=== PATIENT | male | born 1985 | race Hispanic/Latino ===

== ENCOUNTER 2022-02-23 10:34 | Inpatient (IN) | payer MEDICAID, SELFPAY ==
[2022-02-23] MEDS ORDERED: Tranexamic Acid 1,000 MG/10 ML VIAL ONE (10:47)
[2022-02-23 10:52] LABS: #Eosinphils 0.3 thou/uL (0.0-0.7); #Lymphocytes 1.9 thou/uL (1.20-3.40); #Monocytes 0.2 thou/uL (0.11-0.59); #Neutrophils 9.6 thou/uL (1.40-6.50); %Basophils 0.3 % (0.0-1.0); %Eosinophils 2.8 % (0.0-10.0); %Lymphocytes 15.4 % (21.0-51.0); %Neutrophils 79.6 % (42.0-75.0); Hemoglobin 13.3 g/dL (14.0-18.0); Mean Corpuscular HGB CONC 33.6 g/dL (32.0-36.0); Mean Corpuscular Hemoglobin 32.2 pg (27.0-31.0); Mean Corpuscular Volume 95.7 fL (78.0-98.0); Mean Platelet Volume 7.1 fL (7.4-10.4); Platelet Count 220 thou/uL (130-400); RBC Distribution Width 12.1 % (11.5-14.5); Red Blood Cell (RBC) Count 4.14 mill/uL (4.70-6.10)
[2022-02-23] MEDS ORDERED: Sodium Bicarb 50 MEQ/50 ML Abboject 8.4% SYRINGE ONE (11:03)
[2022-02-23 11:05] LABS: INR-International Normal Ratio 1.2; PTT 27.5 sec (22.9-36.1); Prothrombin Time 15.3 sec (12.0-14.7)
[2022-02-23 11:08] LABS: ALT (SGPT) 242 U/L (8-55); AST (SGOT) 308 U/L (5-34); Albumin 3.5 g/dL (3.5-5.0); Alkaline Phosphatase 67 U/L (40-110); Anion Gap 18 mmol/L (10-20); BUN (Urea Nitrogen) 18 mg/dL (8.9-20.6); Bilirubin, Total 0.6 mg/dL (0.2-1.2); Calc. Creatinine Clearance 0 mL/min (70-130); Calcium 7.9 mg/dL (7.8-10.44); Carbon Dioxide 21 mmol/L (22-29); Chloride 101 mmol/L (98-107); Estimated GFR 50; Globulin 2.4 g/dL (2.4-3.5); Glucose 309 mg/dL (70-105); Potassium 4.3 mmol/L (3.5-5.1); Protein, Total 5.9 g/dL (6.0-8.3); Sodium 136 mmol/L (136-145)
[2022-02-23 11:16] LABS: Alcohol Less than 10 mg/dL (Less than 10); Lipase 35 U/L (8-78)
[2022-02-23 11:23] LABS: Acetaminophen Less than 10.0 mcg/mL (10.0-30.0); Alcohol Less than 10 mg/dL (Less than 10); CK (CPK) 840 U/L (30-200); Magnesium 2.6 mg/dL (1.6-2.6); Salicylate Less than 8.0 mg/dL (15.0-30.0)
[2022-02-23] MEDS ORDERED: Rocuronium Bromide 10 MG/ML (10ML VIAL) ONE ×2 (11:25→12:12)
[2022-02-23] MEDS ORDERED: Ketamine 50 MG/ML (10ML VIAL) ONE (11:46)
[2022-02-23] MEDS ORDERED: fentaNYL Citrate/PF 100 MCG/2 ML SYRINGE ONE (11:46)
[2022-02-23] MEDS ORDERED: Calcium Chloride 1 GM/10 ML Abboject SYRINGE ONE ×3 (11:47→12:12)
[2022-02-23] MEDS ORDERED: Midazolam HCl 5 mg/5 ml Vial ONE (11:48)
[2022-02-23] MEDS ORDERED: Heparin 10,000 UNITS/ 10 ML VIAL ONE (11:51)
[2022-02-23 11:55] LABS: CKMB 20.6 ng/mL (0-6.6)
[2022-02-23] MEDS ORDERED: Methylene Blue 50 MG/10 ML AMPUL ONE (12:00)
[2022-02-23] MEDS ORDERED: Phenylephrine 10 MG/ML VIAL ONE (12:12)
[2022-02-23] MEDS ORDERED: Vecuronium 10 MG VIAL ONE (12:12)
[2022-02-23] MEDS ORDERED: Boostrix 0.5 ML (Tdap) VIAL ONE (12:23)
[2022-02-23] MEDS ORDERED: Sodium Bicarbonate 2.5 MEQ/5 ML VIAL ONE (12:30)
[2022-02-23] MEDS ORDERED: Insulin Regular 300 UNITS/3 ML VIAL SC PRN (13:04)
[2022-02-23] MEDS ORDERED: Dextrose 5% in Water 1,000 ML IV PRN (13:04)
[2022-02-23] MEDS ORDERED: TETANUS AND DIPHTHERIA TOX/PF 0.5 ML DISP.SYRIN IM ONE (13:04)
[2022-02-23] MEDS ORDERED: Dextrose 50% Abboject 50 ML SYRINGE SLOW IVP PRN (13:04)
[2022-02-23 13:14] LABS: Actual Bicarbonate (HCO3a) 19.9 mEq/L (22-28); Analyzer IN Cardio ER; Base Excess (BEa) -9.4 mEq/L (-2.0 to +3.0); CO2 Tension 59.7 mmHg (35.0-45.0); Carboxyhemoglobin (COHb) 0.3 gm% (0.0-3.0); Hemoglobin (Hb) 11.7 g/dL (14.0-18.0); Potassium - ABG Lab 3.77 mmol/L (3.70-5.30); pH, Arterial 7.14 (7.35-7.45)
[2022-02-23 13:15] LABS: O2 Tension (PaO2), arterial 54.3 mmHg (80.0-100.0); Puncture Site RRA
[2022-02-23] MEDS ORDERED: Acetaminophen 325 MG/10.15 ML UDCUP PO PRN (13:15)
[2022-02-23 13:16] LABS: ALV-art Gradient 584.075 mmHg (0-20)
[2022-02-23 13:17] LABS: Actual Bicarbonate (HCO3a) 26.8 mEq/L (22-28); Analyzer IN Cardio ER; Base Excess (BEa) 1.1 mEq/L (-2.0 to +3.0); CO2 Tension 48.6 mmHg (35.0-45.0); Calcium, Ionized (arterial) 0.88 mmol/L (1.12-1.30); Carboxyhemoglobin (COHb) 0.2 gm% (0.0-3.0); Hemoglobin (Hb) 8.5 g/dL (14.0-18.0); O2 Tension (PaO2), arterial 63.6 mmHg (80.0-100.0); Potassium - ABG Lab 3.48 mmol/L (3.70-5.30); pH, Arterial 7.36 (7.35-7.45)
[2022-02-23 13:18] LABS: Puncture Site RRA
[2022-02-23] MEDS ORDERED: Iopamidol-370 76% 500 ML 1 ML ONE (13:51)
[2022-02-23 14:33] LABS: Actual Bicarbonate (HCO3a) 25.8 mEq/L (22-28); CO2 Tension 46.8 mmHg (35.0-45.0); Calcium, Ionized (arterial) 1.33 mmol/L (1.12-1.30); Carboxyhemoglobin (COHb) 0.9 gm% (0.0-3.0); Hemoglobin (Hb) 12.2 g/dL (14.0-18.0); Potassium - ABG Lab 3.86 mmol/L (3.70-5.30); pH, Arterial 7.36 (7.35-7.45)
[2022-02-23 14:34] LABS: Puncture Site Arterial Line
[2022-02-23 14:42] LABS: Lactic Acid 3.4 mmol/L (0.5-2.2)
[2022-02-23 14:45] LABS: Band 20 % (5-11); Eosinophils 1 % (0-10); Hemoglobin 11.9 g/dL (14.0-18.0); Lymphocytes 3 % (21-51); MDiff Complete? YES; Mean Corpuscular HGB CONC 33.7 g/dL (32.0-36.0); Mean Corpuscular Hemoglobin 31.7 pg (27.0-31.0); Mean Corpuscular Volume 94.1 fL (78.0-98.0); Mean Platelet Volume 7.4 fL (7.4-10.4); Monocytes 6 % (0-10); Neutrophil 66 % (42-75); Platelet Count 140 thou/uL (130-400); Platelet Morphology Comment Appears Adequate; Polychromasia SLIGHT = 2-3 cells (100X) (0-2/hpf); RBC Distribution Width 13.7 % (11.5-14.5); Reactive Lymphocytes 4 % (0-10); Red Blood Cell (RBC) Count 3.75 mill/uL (4.70-6.10); White Blood Cell (WBC) Count 8.4 thou/uL (4.8-10.8)
[2022-02-23 15:03] LABS: Phosphorus 6.2 mg/dL (2.3-4.7)
[2022-02-23] MEDS ORDERED: Ventilator Sedation Protocol 1 EACH FS ONE (15:18)
[2022-02-23] MEDS ORDERED: Midazolam HCl 2 mg/2 ml Vial SLOW IVP PRN (15:20)
[2022-02-23] MEDS ORDERED: Fentanyl CADD 100 ML ONE (15:25)
[2022-02-23] MEDS ORDERED: DISCONTINUE PREVIOUS NARCOTIC PAIN MEDICATIONS AND BENZODIAZEPINES FS SCH (15:30)
[2022-02-23] MEDS ORDERED: Propofol BOLUS 1,000 MG/100 ML VIAL IV PRN (15:30)
[2022-02-23] MEDS ORDERED: Fentanyl BOLUS 250 ML IVPB PRN (15:30)
[2022-02-23] MEDS ORDERED: Morphine 2 MG/ML VIAL SLOW IVP PRN (15:30)
[2022-02-23] MEDS ORDERED: Propofol 1,000 MG/100 ML VIAL IV PRN (15:30)
[2022-02-23 15:40] LABS: Anion Gap 19 mmol/L (10-20); BUN (Urea Nitrogen) 19 mg/dL (8.9-20.6); Calc. Creatinine Clearance 0 mL/min (70-130); Calcium 9.7 mg/dL (7.8-10.44); Carbon Dioxide 20 mmol/L (22-29); Chloride 108 mmol/L (98-107); Estimated GFR 66; Glucose 163 mg/dL (70-105); Potassium 3.8 mmol/L (3.5-5.1); Sodium 143 mmol/L (136-145)
[2022-02-23 16:45] LABS: Bacteria/HPF None Seen HPF (None Seen); Bilirubin Negative (Negative); Blood, Urine 3+ (Negative); Clarity Cloudy (Clear); Glucose, Urine (Dipstick) Normal (Negative); Ketone, Urine Negative (Negative); Leukocyte Negative Leu/uL (Negative); Nitrite Negative (Negative); Protein, Urine (Dipstick) Negative (Neg-Trace); RBC/HPF Greater than 50 HPF (0-3); Specific Gravity, Urine 1.018 (1.002-1.036); Squamous Epithelial None Seen HPF (0-3); Urobilinogen Normal mg/dL (Less than 2)
[2022-02-23 16:46] LABS: Amphetamine Not Detected (NotDetected); Barbiturates Screen Not Detected (NotDetected); Benzodiazepine Screen Not Detected (NotDetected); Cocaine Metabolite Screen Not Detected (NotDetected); Methadone Not Detected (NotDetected); Methamphetamine Not Detected (NotDetected); Opiate Screen Not Detected (NotDetected); Oxycodone Screen Not Detected (NotDetected); Phencyclidine (PCP) Not Detected (NotDetected); THC/Cannabinoid Screen Not Detected (NotDetected); Tricyclic Screen Not Detected (NotDetected)
[2022-02-23] MEDS ORDERED: Sodium Chloride 0.9% 500 ML IV SCH (17:00)
[2022-02-23] MEDS ORDERED: Morphine 4 MG/ML VIAL SLOW IVP SCH (17:00)
[2022-02-23] MEDS ORDERED: Sodium Chloride 0.9% 1,000 ML IV SCH (17:00)
[2022-02-23] MEDS ORDERED: Potassium Chloride 40 MEQ in Premix Bag 1 BAG IVPB SCH (17:15)
[2022-02-23] MEDS ORDERED: Dexmedetomidine In 0.9 % NaCl 100 ML IVPB SCH (17:30)
[2022-02-23] MEDS: Fentanyl CADD 100 ML IV SCH (18:06)
[2022-02-23] MEDS: Sodium Chloride 0.9% 1,000 ML IV SCH ×2 (18:06→19:59)
[2022-02-23] MEDS ORDERED: Oxazepam 10 MG CAP PO SCH (18:15)
[2022-02-23] MEDS: Potassium Chloride 20 MEQ in Premix Bag 1 BAG IVPB SCH ×2 (18:16→19:55)
[2022-02-23 18:25] LABS: Actual Bicarbonate (HCO3a) 20.7 mEq/L (22-28); Base Excess (BEa) -4.4 mEq/L (-2.0 to +3.0); CO2 Tension 38.4 mmHg (35.0-45.0); Hemoglobin (Hb) 12.9 g/dL (14.0-18.0); O2 Tension (PaO2), arterial 125.2 mmHg (80.0-100.0); Potassium - ABG Lab 3.82 mmol/L (3.70-5.30); pH, Arterial 7.35 (7.35-7.45)
[2022-02-23 18:26] LABS: Puncture Site LINE
[2022-02-23] MEDS ORDERED: Xylocaine 1% w/ Epi 1:100K 10 ML VIAL ONE (18:35)
[2022-02-23 18:48] LABS: CKMB 54.3 ng/mL (0-6.6)
[2022-02-23] MEDS ORDERED: Mannitol 12.5 GM/50 ML SLOW IVP PRN (19:44)
[2022-02-23] MEDS ORDERED: Piperacillin/Tazobactam 3.375 GM in Sodium Chloride 0.9% 100 ML IVPB SCH ×2 (20:00→23:59)
[2022-02-23 20:40] LABS: Lactic Acid 6.1 mmol/L (0.5-2.2)
[2022-02-23 20:41] LABS: INR-International Normal Ratio 1.2; PTT 25.6 sec (22.9-36.1); Prothrombin Time 14.9 sec (12.0-14.7)
[2022-02-23 20:48] LABS: ALT (SGPT) 116 U/L (8-55); AST (SGOT) 292 U/L (5-34); Albumin 2.8 g/dL (3.5-5.0); Alkaline Phosphatase 43 U/L (40-110); Anion Gap 18 mmol/L (10-20); BUN (Urea Nitrogen) 24 mg/dL (8.9-20.6); Bilirubin, Total 1.4 mg/dL (0.2-1.2); Calc. Creatinine Clearance 87 mL/min (70-130); Calcium 8.2 mg/dL (7.8-10.44); Carbon Dioxide 18 mmol/L (22-29); Chloride 112 mmol/L (98-107); Estimated GFR 56; Globulin 1.6 g/dL (2.4-3.5); Glucose 178 mg/dL (70-105); Magnesium 1.8 mg/dL (1.6-2.6); Phosphorus 5.7 mg/dL (2.3-4.7); Potassium 4.7 mmol/L (3.5-5.1); Protein, Total 4.4 g/dL (6.0-8.3); Sodium 143 mmol/L (136-145)
[2022-02-23 20:57] LABS: Hemoglobin 12.6 g/dL (14.0-18.0); Mean Corpuscular Hemoglobin 31.7 pg (27.0-31.0); Mean Corpuscular Volume 93.3 fL (78.0-98.0); Mean Platelet Volume 7.9 fL (7.4-10.4); Platelet Count 136 thou/uL (130-400); RBC Distribution Width 14.1 % (11.5-14.5); Red Blood Cell (RBC) Count 3.97 mill/uL (4.70-6.10); White Blood Cell (WBC) Count 9.3 thou/uL (4.8-10.8)
[2022-02-23 21:03] LABS: Band 47 % (5-11); Lymphocytes 5 % (21-51); MDiff Complete? YES; Metamyelocyte 1 % (0-0); Monocytes 7 % (0-10); Neutrophil 40 % (42-75)
[2022-02-23] MEDS: Famotidine/PF 20 mg/2ml Vial SLOW IVP SCH (22:20)
[2022-02-23] MEDS ORDERED: Acetaminophen 650 MG/20.3 ML UDCUP PO PRN (22:45)
[2022-02-23] MEDS ORDERED: Magnesium 2 GM/50 ML(in water) 2 GM in Premix Bag 1 BAG IVPB SCH (23:45)
[2022-02-24] MEDS: Sodium Chloride 0.9% 1,000 ML IV SCH ×4 (00:09→18:24)
[2022-02-24] MEDS ORDERED: Sodium Chloride 0.9% 1,000 ML IV SCH (02:45)
[2022-02-24] MEDS: Piperacillin/Tazobactam 3.375 GM in Sodium Chloride 0.9% 100 ML IVPB SCH ×3 (02:53→18:20)
[2022-02-24 03:15] LABS: INR-International Normal Ratio 1.1; PTT 28.4 sec (22.9-36.1); Prothrombin Time 14.7 sec (12.0-14.7)
[2022-02-24 03:16] LABS: Anion Gap 19 mmol/L (10-20); BUN (Urea Nitrogen) 27 mg/dL (8.9-20.6); CK (CPK) 3624 U/L (30-200); Calc. Creatinine Clearance 98 mL/min (70-130); Carbon Dioxide 15 mmol/L (22-29); Chloride 114 mmol/L (98-107); Estimated GFR 65; Glucose 189 mg/dL (70-105); Magnesium 2.3 mg/dL (1.6-2.6); Phosphorus 3.5 mg/dL (2.3-4.7); Potassium 4.3 mmol/L (3.5-5.1); Sodium 144 mmol/L (136-145)
[2022-02-24 03:21] LABS: Critical Call Chem Troponin I RESULT DECREASING; Troponin I 8.955 ng/mL (< 0.028)
[2022-02-24 03:26] LABS: Band 26 % (5-11); Hemoglobin 10.6 g/dL (14.0-18.0); Hypochromia SLIGHT = 6-15 cells (100X) (0-5/hpf); Lymphocytes 3 % (21-51); MDiff Complete? YES; Mean Corpuscular HGB CONC 34.9 g/dL (32.0-36.0); Mean Corpuscular Volume 91.7 fL (78.0-98.0); Mean Platelet Volume 7.7 fL (7.4-10.4); Metamyelocyte 1 % (0-0); Monocytes 8 % (0-10); Neutrophil 62 % (42-75); Platelet Count 148 thou/uL (130-400); Platelet Morphology Comment Appears Adequate; RBC Distribution Width 14.2 % (11.5-14.5); Red Blood Cell (RBC) Count 3.32 mill/uL (4.70-6.10); White Blood Cell (WBC) Count 9.7 thou/uL (4.8-10.8)
[2022-02-24] MEDS ORDERED: levETIRAcetam in NS 1,000 MG in Premix Bag 1 BAG IVPB SCH (03:45)
[2022-02-24] MEDS ORDERED: levETIRAcetam 500 MG/5 ML VIAL SLOW IVP SCH (04:00)
[2022-02-24 04:28] LABS: Lactic Acid 4.7 mmol/L (0.5-2.2)
[2022-02-24] MEDS: Oxazepam 10 MG CAP PO SCH ×3 (06:43→21:40)
[2022-02-24 07:38] LABS: Actual Bicarbonate (HCO3a) 20.3 mEq/L (22-28); Base Excess (BEa) -2.9 mEq/L (-2.0 to +3.0); CO2 Tension 29.4 mmHg (35.0-45.0); Calcium, Ionized (arterial) 1.05 mmol/L (1.12-1.30); Carboxyhemoglobin (COHb) 0.3 gm% (0.0-3.0); Hemoglobin (Hb) 9.7 g/dL (14.0-18.0); O2 Tension (PaO2), arterial 166.3 mmHg (80.0-100.0); Potassium - ABG Lab 3.92 mmol/L (3.70-5.30); pH, Arterial 7.46 (7.35-7.45)
[2022-02-24 07:44] LABS: Puncture Site Arterial Line
[2022-02-24] MEDS: Folic Acid 1 MG TAB PO SCH (08:11)
[2022-02-24] MEDS: Famotidine/PF 20 mg/2ml Vial SLOW IVP SCH ×2 (08:11→21:40)
[2022-02-24] MEDS: Multivitamin W/ Minerals 1 TAB PO SCH (08:11)
[2022-02-24] MEDS: Thiamine 100 MG TAB PO SCH (08:12)
[2022-02-24] MEDS ORDERED: Calcium Chloride 1 GM/10 ML Abboject SYRINGE IVP SCH (08:15)
[2022-02-24] MEDS ORDERED: Albumin 5% 1,000 ML ONE (08:17)
[2022-02-24] MEDS ORDERED: Norepinephrine 4 MG/4 ML VIAL ONE (08:17)
[2022-02-24] MEDS ORDERED: Sodium Bicarb 50 MEQ/50 ML Abboject 8.4% SYRINGE ONE (08:17)
[2022-02-24] MEDS ORDERED: fentaNYL Citrate/PF 100 MCG/2 ML SYRINGE ONE (08:21)
[2022-02-24] MEDS ORDERED: Midazolam HCl 5 mg/5 ml Vial ONE (08:21)
[2022-02-24 08:46] LABS: #Lymphocytes 0.7 thou/uL (1.20-3.40); #Monocytes 0.5 thou/uL (0.11-0.59); #Neutrophils 7.8 thou/uL (1.40-6.50); %Basophils 0.4 % (0.0-1.0); %Eosinophils 0.2 % (0.0-10.0); %Lymphocytes 7.2 % (21.0-51.0); %Monocytes 5.4 % (0.0-10.0); %Neutrophils 86.8 % (42.0-75.0); Hemoglobin 9.2 g/dL (14.0-18.0); Mean Corpuscular HGB CONC 33.7 g/dL (32.0-36.0); Mean Corpuscular Hemoglobin 31.4 pg (27.0-31.0); Mean Corpuscular Volume 93.2 fL (78.0-98.0); Mean Platelet Volume 8.2 fL (7.4-10.4); Platelet Count 132 thou/uL (130-400); RBC Distribution Width 14.4 % (11.5-14.5); Red Blood Cell (RBC) Count 2.93 mill/uL (4.70-6.10)
[2022-02-24] MEDS ORDERED: Albumin 25% 25 GM/100 ML BOT IVPB SCH (09:00)
[2022-02-24] MEDS ORDERED: Rocuronium Bromide 10 MG/ML (10ML VIAL) ONE (09:25)
[2022-02-24] MEDS ORDERED: Calcium Chloride 1 GM/10 ML Abboject SYRINGE ONE (09:25)
[2022-02-24] MEDS ORDERED: Vecuronium 10 MG VIAL ONE (09:25)
[2022-02-24] MEDS ORDERED: Piperacillin/Tazobactam 3.375 GM VIAL ONE (10:04)
[2022-02-24 12:53] LABS: Actual Bicarbonate (HCO3a) 21.1 mEq/L (22-28); Base Excess (BEa) -3.2 mEq/L (-2.0 to +3.0); CO2 Tension 34.5 mmHg (35.0-45.0); Calcium, Ionized (arterial) 1.16 mmol/L (1.12-1.30); Carboxyhemoglobin (COHb) 0.6 gm% (0.0-3.0); Hemoglobin (Hb) 8.2 g/dL (14.0-18.0); O2 Tension (PaO2), arterial 99.8 mmHg (80.0-100.0); Potassium - ABG Lab 3.94 mmol/L (3.70-5.30)
[2022-02-24 12:55] LABS: ALV-art Gradient 213.575 mmHg (0-20); Puncture Site Arterial Line
[2022-02-24] MEDS ORDERED: Diazepam 5 MG TAB PO PRN (13:41)
[2022-02-24] MEDS ORDERED: Fentanyl CADD 100 ML ONE (18:18)
[2022-02-24] MEDS: Fentanyl CADD 100 ML IV SCH (18:21)
[2022-02-24 20:12] LABS: #Lymphocytes 0.8 thou/uL (1.20-3.40); #Monocytes 0.4 thou/uL (0.11-0.59); #Neutrophils 7.5 thou/uL (1.40-6.50); %Basophils 0.1 % (0.0-1.0); %Eosinophils 0.2 % (0.0-10.0); %Lymphocytes 8.7 % (21.0-51.0); %Monocytes 4.8 % (0.0-10.0); %Neutrophils 86.1 % (42.0-75.0); Hemoglobin 8.9 g/dL (14.0-18.0); Mean Corpuscular HGB CONC 36.4 g/dL (32.0-36.0); Mean Corpuscular Hemoglobin 34.3 pg (27.0-31.0); Mean Corpuscular Volume 94.3 fL (78.0-98.0); RBC Distribution Width 14.2 % (11.5-14.5); Red Blood Cell (RBC) Count 2.58 mill/uL (4.70-6.10); White Blood Cell (WBC) Count 8.7 thou/uL (4.8-10.8)
[2022-02-24 20:24] LABS: INR-International Normal Ratio 1.3; PTT 32.1 sec (22.9-36.1); Prothrombin Time 16.6 sec (12.0-14.7)
[2022-02-24 20:26] LABS: MDiff Complete? YES; Mean Platelet Volume 8.2 fL (7.4-10.4); Platelet Count 114 thou/uL (130-400); Platelet Morphology Comment Appears Decreased; Polychromasia SLIGHT = 2-3 cells (100X) (0-2/hpf)
[2022-02-24 20:35] LABS: Anion Gap 10 mmol/L (10-20); BUN (Urea Nitrogen) 16 mg/dL (8.9-20.6); Calc. Creatinine Clearance 179 mL/min (70-130); Calcium 8.6 mg/dL (7.8-10.44); Carbon Dioxide 22 mmol/L (22-29); Chloride 117 mmol/L (98-107); Estimated GFR 117; Glucose 133 mg/dL (70-105); Magnesium 1.8 mg/dL (1.6-2.6); Phosphorus 1.6 mg/dL (2.3-4.7); Potassium 3.9 mmol/L (3.5-5.1); Sodium 145 mmol/L (136-145)
[2022-02-24] MEDS ORDERED: Magnesium 2 GM/50 ML(in water) 2 GM in Premix Bag 1 BAG IVPB SCH (21:00)
[2022-02-24] MEDS ORDERED: levETIRAcetam in NS 500 MG in Premix Bag 1 BAG IVPB SCH (21:00)
[2022-02-24] MEDS ORDERED: Sodium Phosphate 30 MMOL in Sodium Chloride 0.9% 250 ML 250 ML IVPB SCH (21:15)
[2022-02-24] MEDS: levETIRAcetam 500 MG/5 ML VIAL SLOW IVP SCH (21:40)
[2022-02-25] MEDS: Sodium Chloride 0.9% 1,000 ML IV SCH (01:23)
[2022-02-25] MEDS: Piperacillin/Tazobactam 3.375 GM in Sodium Chloride 0.9% 100 ML IVPB SCH ×3 (02:29→17:45)
[2022-02-25 03:57] LABS: #Eosinphils 0.1 thou/uL (0.0-0.7); #Lymphocytes 0.9 thou/uL (1.20-3.40); #Monocytes 0.4 thou/uL (0.11-0.59); #Neutrophils 7.1 thou/uL (1.40-6.50); %Basophils 0.3 % (0.0-1.0); %Eosinophils 1.1 % (0.0-10.0); %Lymphocytes 10.7 % (21.0-51.0); %Monocytes 4.8 % (0.0-10.0); %Neutrophils 83.1 % (42.0-75.0); Mean Corpuscular HGB CONC 34.9 g/dL (32.0-36.0); Mean Corpuscular Hemoglobin 33.2 pg (27.0-31.0); Mean Platelet Volume 8.1 fL (7.4-10.4); Platelet Count 122 thou/uL (130-400); RBC Distribution Width 14.2 % (11.5-14.5); Red Blood Cell (RBC) Count 2.42 mill/uL (4.70-6.10); White Blood Cell (WBC) Count 8.6 thou/uL (4.8-10.8)
[2022-02-25 04:33] LABS: ALT (SGPT) 68 U/L (8-55); AST (SGOT) 87 U/L (5-34); Alkaline Phosphatase 31 U/L (40-110); Anion Gap 12 mmol/L (10-20); BUN (Urea Nitrogen) 13 mg/dL (8.9-20.6); Bilirubin, Total 0.9 mg/dL (0.2-1.2); CK (CPK) 2596 U/L (30-200); Calc. Creatinine Clearance 195 mL/min (70-130); Carbon Dioxide 20 mmol/L (22-29); Chloride 118 mmol/L (98-107); Estimated GFR 120; Globulin 1.9 g/dL (2.4-3.5); Glucose 134 mg/dL (70-105); Magnesium 2.3 mg/dL (1.6-2.6); Phosphorus 2.7 mg/dL (2.3-4.7); Potassium 3.5 mmol/L (3.5-5.1); Protein, Total 4.9 g/dL (6.0-8.3); Sodium 146 mmol/L (136-145)
[2022-02-25] MEDS: Oxazepam 10 MG CAP PO SCH ×3 (06:37→21:42)
[2022-02-25] MEDS: Lactated Ringer's 1,000 ML IV SCH ×2 (07:45→17:54)
[2022-02-25] MEDS ORDERED: Fentanyl CADD 100 ML ONE ×2 (08:08→17:33)
[2022-02-25] MEDS: Folic Acid 1 MG TAB PO SCH (08:16)
[2022-02-25] MEDS: Thiamine 100 MG TAB PO SCH (08:16)
[2022-02-25] MEDS: Famotidine/PF 20 mg/2ml Vial SLOW IVP SCH ×2 (08:16→21:42)
[2022-02-25] MEDS: Multivitamin W/ Minerals 1 TAB PO SCH (08:16)
[2022-02-25] MEDS: levETIRAcetam 500 MG/5 ML VIAL SLOW IVP SCH ×2 (08:17→21:43)
[2022-02-25] MEDS: Fentanyl CADD 100 ML IV SCH (08:40)
[2022-02-25 09:07] LABS: Actual Bicarbonate (HCO3a) 21.3 mEq/L (22-28); CO2 Tension 34.3 mmHg (35.0-45.0); Calcium, Ionized (arterial) 1.07 mmol/L (1.12-1.30); Carboxyhemoglobin (COHb) 0.2 gm% (0.0-3.0); Hemoglobin (Hb) 7.7 g/dL (14.0-18.0); O2 Tension (PaO2), arterial 136.9 mmHg (80.0-100.0); Potassium - ABG Lab 3.36 mmol/L (3.70-5.30); pH, Arterial 7.41 (7.35-7.45)
[2022-02-25 09:10] LABS: ALV-art Gradient 105.425 mmHg (0-20); Puncture Site Arterial Line
[2022-02-25] MEDS ORDERED: Calcium Chloride 1 GM/10 ML Abboject SYRINGE IVP SCH (10:45)
[2022-02-25 20:13] LABS: Phosphorus 2.2 mg/dL (2.3-4.7)
[2022-02-25 20:15] LABS: Anion Gap 11 mmol/L (10-20); BUN (Urea Nitrogen) 12 mg/dL (8.9-20.6); Calc. Creatinine Clearance 197 mL/min (70-130); Calcium 8.2 mg/dL (7.8-10.44); Carbon Dioxide 21 mmol/L (22-29); Chloride 117 mmol/L (98-107); Estimated GFR 120; Glucose 135 mg/dL (70-105); Potassium 3.7 mmol/L (3.5-5.1); Sodium 145 mmol/L (136-145)
[2022-02-25 20:17] LABS: Band 25 % (5-11); Hemoglobin 7.5 g/dL (14.0-18.0); Lymphocytes 4 % (21-51); MDiff Complete? YES; Mean Corpuscular HGB CONC 34.1 g/dL (32.0-36.0); Mean Corpuscular Hemoglobin 32.8 pg (27.0-31.0); Mean Corpuscular Volume 96.3 fL (78.0-98.0); Mean Platelet Volume 7.9 fL (7.4-10.4); Monocytes 3 % (0-10); Neutrophil 65 % (42-75); Nucleated RBC 1 % (0); Platelet Count 146 thou/uL (130-400); Platelet Morphology Comment Appears Adequate; Polychromasia SLIGHT = 2-3 cells (100X) (0-2/hpf); RBC Distribution Width 14.4 % (11.5-14.5); Reactive Lymphocytes 3 % (0-10); Red Blood Cell (RBC) Count 2.27 mill/uL (4.70-6.10); White Blood Cell (WBC) Count 10.3 thou/uL (4.8-10.8)
[2022-02-25] MEDS ORDERED: Potassium Phosphate 30 MMOL in Sodium Chloride 0.9% 250 ML 250 ML IVPB SCH (21:00)
[2022-02-26] MEDS: Lactated Ringer's 1,000 ML IV SCH ×2 (00:35→09:08)
[2022-02-26] MEDS: Acetaminophen 500 MG TAB PO SCH ×5 (00:40→23:46)
[2022-02-26] MEDS: Piperacillin/Tazobactam 3.375 GM in Sodium Chloride 0.9% 100 ML IVPB SCH ×3 (01:46→17:37)
[2022-02-26] MEDS: Fentanyl CADD 100 ML IV SCH (04:08)
[2022-02-26 05:02] LABS: Anion Gap 11 mmol/L (10-20); BUN (Urea Nitrogen) 12 mg/dL (8.9-20.6); Calc. Creatinine Clearance 197 mL/min (70-130); Calcium 7.5 mg/dL (7.8-10.44); Carbon Dioxide 21 mmol/L (22-29); Chloride 121 mmol/L (98-107); Estimated GFR 120; Glucose 114 mg/dL (70-105); Magnesium 2.5 mg/dL (1.6-2.6); Phosphorus 3.4 mg/dL (2.3-4.7); Sodium 149 mmol/L (136-145)
[2022-02-26] MEDS: Oxazepam 10 MG CAP PO SCH ×3 (05:32→21:07)
[2022-02-26 05:41] LABS: Band 40 % (5-11); Lymphocytes 13 % (21-51); MDiff Complete? YES; Monocytes 7 % (0-10); Neutrophil 40 % (42-75); Platelet Count 166 thou/uL (130-400); RBC Distribution Width 14.3 % (11.5-14.5); Red Blood Cell (RBC) Count 2.18 mill/uL (4.70-6.10); White Blood Cell (WBC) Count 11.3 thou/uL (4.8-10.8)
[2022-02-26] MEDS ORDERED: Ferrous Sulfate 325 MG TAB PO SCH (08:00)
[2022-02-26] MEDS ORDERED: [UNRECOGNIZED DRUG - REMARK] FS SCH (08:30)
[2022-02-26] MEDS ORDERED: Sodium Chloride 0.9% (PF) 10 ML VIAL FS PRN (08:30)
[2022-02-26] MEDS ORDERED: Furosemide 20 MG/2 ML VIAL SLOW IVP SCH (08:30)
[2022-02-26] MEDS: Folic Acid 1 MG TAB PO SCH (08:33)
[2022-02-26] MEDS: Thiamine 100 MG TAB PO SCH (08:34)
[2022-02-26] MEDS: Multivitamin W/ Minerals 1 TAB PO SCH (08:34)
[2022-02-26] MEDS: Ascorbic Acid 500 mg Chewable Tablet PO SCH ×2 (08:34→21:07)
[2022-02-26] MEDS: Ferrous Sulfate 325 MG TAB PO SCH ×2 (08:34→21:07)
[2022-02-26 08:35] LABS: Actual Bicarbonate (HCO3a) 21.6 mEq/L (22-28); Analyzer IN Cardio OR; Base Excess (BEa) -2.3 mEq/L (-2.0 to +3.0); CO2 Tension 32.5 mmHg (35.0-45.0); Calcium, Ionized (arterial) 1.09 mmol/L (1.12-1.30); Carboxyhemoglobin (COHb) 0.6 gm% (0.0-3.0); Hemoglobin (Hb) 6.9 g/dL (14.0-18.0); O2 Tension (PaO2), arterial 143.4 mmHg (80.0-100.0); pH, Arterial 7.44 (7.35-7.45)
[2022-02-26] MEDS: levETIRAcetam 500 MG/5 ML VIAL SLOW IVP SCH ×2 (08:35→21:07)
[2022-02-26 08:39] LABS: Puncture Site Arterial Line
[2022-02-26 08:40] LABS: ALV-art Gradient 101.175 mmHg (0-20)
[2022-02-26] MEDS: Pantoprazole 40 MG VIAL IVP SCH (08:42)
[2022-02-26] MEDS ORDERED: Calcium Chloride 1 GM/10 ML Abboject SYRINGE IVP SCH (09:15)
[2022-02-26] MEDS ORDERED: Lorazepam 2 MG/ML VIAL ONE (13:16)
[2022-02-26] MEDS ORDERED: Lorazepam 2 MG/ML VIAL SLOW IVP SCH (15:30)
[2022-02-26] MEDS ORDERED: Fentanyl CADD 100 ML ONE (17:17)
[2022-02-27] MEDS: Piperacillin/Tazobactam 3.375 GM in Sodium Chloride 0.9% 100 ML IVPB SCH ×3 (02:05→16:49)
[2022-02-27 05:01] LABS: Band 18 % (5-11); Elliptocytes SLIGHT = 2-5 cells (100X) (0-1/hpf); Eosinophils 2 % (0-10); Lymphocytes 6 % (21-51); MDiff Complete? YES; Macrocytosis MODERATE=16-30 cells (100X) (0-5/hpf); Mean Corpuscular Hemoglobin 32.2 pg (27.0-31.0); Mean Platelet Volume 7.5 fL (7.4-10.4); Monocytes 6 % (0-10); Neutrophil 68 % (42-75); Nucleated RBC 3 % (0); Ovalocytes SLIGHT = 2-5 cells (100X) (0-1/hpf); Platelet Count 181 thou/uL (130-400); Platelet Morphology Comment Appears Adequate; RBC Distribution Width 13.6 % (11.5-14.5); Red Blood Cell (RBC) Count 1.86 mill/uL (4.70-6.10); White Blood Cell (WBC) Count 12.8 thou/uL (4.8-10.8)
[2022-02-27 05:07] LABS: Anion Gap 11 mmol/L (10-20); BUN (Urea Nitrogen) 13 mg/dL (8.9-20.6); Calc. Creatinine Clearance 264 mL/min (70-130); Calcium 6.7 mg/dL (7.8-10.44); Carbon Dioxide 18 mmol/L (22-29); Chloride 117 mmol/L (98-107); Estimated GFR 131; Glucose 110 mg/dL (70-105); Magnesium 1.7 mg/dL (1.6-2.6); Phosphorus 2.2 mg/dL (2.3-4.7); Potassium 2.9 mmol/L (3.5-5.1); Sodium 143 mmol/L (136-145)
[2022-02-27] MEDS: Fentanyl CADD 100 ML IV SCH ×2 (05:12→16:50)
[2022-02-27] MEDS ORDERED: Potassium Phosphate 30 MMOL in Sodium Chloride 0.9% 250 ML 250 ML IVPB SCH (06:00)
[2022-02-27] MEDS ORDERED: Magnesium 2 GM/50 ML(in water) 2 GM in Premix Bag 1 BAG IVPB SCH (06:00)
[2022-02-27] MEDS: Oxazepam 10 MG CAP PO SCH ×4 (06:20→23:28)
[2022-02-27] MEDS: Acetaminophen 500 MG TAB PO SCH ×4 (06:20→23:28)
[2022-02-27] MEDS ORDERED: Calcium Chloride 13.6 MEQ in Sodium Chloride 0.9% 100 ML IVPB SCH (08:30)
[2022-02-27] MEDS: Ferrous Sulfate 325 MG TAB PO SCH ×2 (09:02→20:53)
[2022-02-27] MEDS: Multivitamin W/ Minerals 1 TAB PO SCH (09:02)
[2022-02-27] MEDS: levETIRAcetam 500 MG/5 ML VIAL SLOW IVP SCH ×2 (09:02→20:53)
[2022-02-27] MEDS: Folic Acid 1 MG TAB PO SCH (09:02)
[2022-02-27] MEDS: Thiamine 100 MG TAB PO SCH (09:02)
[2022-02-27] MEDS: Pantoprazole 40 MG VIAL IVP SCH (09:19)
[2022-02-27] MEDS: Ascorbic Acid 500 mg Chewable Tablet PO SCH ×2 (09:30→20:53)
[2022-02-27 09:33] LABS: #Eosinphils 0.2 thou/uL (0.0-0.7); #Lymphocytes 1.2 thou/uL (1.20-3.40); #Monocytes 1.1 thou/uL (0.11-0.59); #Neutrophils 13.5 thou/uL (1.40-6.50); %Basophils 0.1 % (0.0-1.0); %Eosinophils 1.5 % (0.0-10.0); %Lymphocytes 7.5 % (21.0-51.0); %Monocytes 6.6 % (0.0-10.0); %Neutrophils 84.4 % (42.0-75.0); Hemoglobin 7.1 g/dL (14.0-18.0); Mean Corpuscular HGB CONC 31.9 g/dL (32.0-36.0); Mean Corpuscular Hemoglobin 31.7 pg (27.0-31.0); Mean Corpuscular Volume 99.4 fL (78.0-98.0); Mean Platelet Volume 7.5 fL (7.4-10.4); Platelet Count 223 thou/uL (130-400); RBC Distribution Width 13.6 % (11.5-14.5); Red Blood Cell (RBC) Count 2.23 mill/uL (4.70-6.10)
[2022-02-27] MEDS: Potassium Chloride 20 MEQ in Premix Bag 1 BAG IVPB SCH ×2 (09:49→10:39)
[2022-02-27 13:57] LABS: Actual Bicarbonate (HCO3a) 24.6 mEq/L (22-28); Analyzer IN Cardio OR; Base Excess (BEa) -2.2 mEq/L (-2.0 to +3.0); CO2 Tension 51.9 mmHg (35.0-45.0); Calcium, Ionized (arterial) 1.34 mmol/L (1.12-1.30); Carboxyhemoglobin (COHb) 1.7 gm% (0.0-3.0); Potassium - ABG Lab 4.19 mmol/L (3.70-5.30); pH, Arterial 7.29 (7.35-7.45)
[2022-02-27 13:57] LABS: Actual Bicarbonate (HCO3a) 31.1 mEq/L (22-28); Analyzer IN Cardio OR; Base Excess (BEa) 0.9 mEq/L (-2.0 to +3.0); Calcium, Ionized (arterial) 1.49 mmol/L (1.12-1.30); Carboxyhemoglobin (COHb) 1.4 gm% (0.0-3.0); Potassium - ABG Lab 3.88 mmol/L (3.70-5.30)
[2022-02-27 13:58] LABS: Actual Bicarbonate (HCO3a) 28.3 mEq/L (22-28); Analyzer IN Cardio OR; Calcium, Ionized (arterial) 1.49 mmol/L (1.12-1.30); Carboxyhemoglobin (COHb) 0.5 gm% (0.0-3.0); Hemoglobin (Hb) 8.7 g/dL (14.0-18.0); Potassium - ABG Lab 4.06 mmol/L (3.70-5.30)
[2022-02-27 14:11] LABS: CO2 Tension 70.3 mmHg (35.0-45.0); pH, Arterial 7.22 (7.35-7.45)
[2022-02-27 14:12] LABS: Puncture Site Arterial Line
[2022-02-27 14:13] LABS: CO2 Tension 85.9 mmHg (35.0-45.0); O2 Tension (PaO2), arterial 42.8 mmHg (80.0-100.0); pH, Arterial 7.18 (7.35-7.45)
[2022-02-27 14:14] LABS: Puncture Site Arterial Line
[2022-02-27 14:15] LABS: O2 Tension (PaO2), arterial 57.5 mmHg (80.0-100.0); Puncture Site Arterial Line
[2022-02-27] MEDS ORDERED: Fentanyl CADD 100 ML ONE (16:46)
[2022-02-27 17:05] LABS: Hemoglobin 8.6 g/dL (14.0-18.0)
[2022-02-27] MEDS ORDERED: cloNIDine 0.2 MG TAB PO SCH (18:00)
[2022-02-28] MEDS: Dexmedetomidine 1,000 MCG in Sodium Chloride 0.9% 250 ML 240 ML IVPB SCH (01:00)
[2022-02-28] MEDS: Piperacillin/Tazobactam 3.375 GM in Sodium Chloride 0.9% 100 ML IVPB SCH ×3 (02:08→18:01)
[2022-02-28] MEDS: Acetaminophen 500 MG TAB PO SCH ×4 (05:56→23:04)
[2022-02-28] MEDS: Oxazepam 10 MG CAP PO SCH ×3 (05:57→21:17)
[2022-02-28 06:46] LABS: Hemoglobin 7.9 g/dL (14.0-18.0); Mean Corpuscular HGB CONC 32.9 g/dL (32.0-36.0); Mean Corpuscular Hemoglobin 31.4 pg (27.0-31.0); Mean Corpuscular Volume 95.6 fL (78.0-98.0); Mean Platelet Volume 7.8 fL (7.4-10.4); Platelet Count 307 thou/uL (130-400); White Blood Cell (WBC) Count 13.4 thou/uL (4.8-10.8)
[2022-02-28 07:32] LABS: Actual Bicarbonate (HCO3a) 23.3 mEq/L (22-28); Base Excess (BEa) -0.5 mEq/L (-2.0 to +3.0); CO2 Tension 34.3 mmHg (35.0-45.0); Calcium, Ionized (arterial) 1.13 mmol/L (1.12-1.30); Carboxyhemoglobin (COHb) 0.5 gm% (0.0-3.0); Hemoglobin (Hb) 8.4 g/dL (14.0-18.0); O2 Tension (PaO2), arterial 73.8 mmHg (80.0-100.0); Potassium - ABG Lab 3.81 mmol/L (3.70-5.30); Puncture Site Arterial Line; pH, Arterial 7.45 (7.35-7.45)
[2022-02-28 07:33] LABS: ALV-art Gradient 168.525 mmHg (0-20)
[2022-02-28] MEDS: Potassium Chloride 20 MEQ in Premix Bag 1 BAG IVPB SCH ×2 (07:37→11:46)
[2022-02-28] MEDS: levETIRAcetam 500 MG/5 ML VIAL SLOW IVP SCH ×2 (07:38→21:17)
[2022-02-28] MEDS: Pantoprazole 40 MG VIAL IVP SCH (07:40)
[2022-02-28] MEDS: Multivitamin W/ Minerals 1 TAB PO SCH (07:44)
[2022-02-28] MEDS: Ferrous Sulfate 325 MG TAB PO SCH ×2 (07:44→21:17)
[2022-02-28] MEDS: Ascorbic Acid 500 mg Chewable Tablet PO SCH ×2 (07:44→21:17)
[2022-02-28] MEDS: Folic Acid 1 MG TAB PO SCH (07:44)
[2022-02-28] MEDS: Thiamine 100 MG TAB PO SCH (07:44)
[2022-02-28 08:17] LABS: Anion Gap 14 mmol/L (10-20); BUN (Urea Nitrogen) 14 mg/dL (8.9-20.6); Band 27 % (5-11); Calc. Creatinine Clearance 237 mL/min (70-130); Calcium 8.4 mg/dL (7.8-10.44); Carbon Dioxide 21 mmol/L (22-29); Chloride 110 mmol/L (98-107); Eosinophils 2 % (0-10); Estimated GFR 126; Glucose 103 mg/dL (70-105); Lymphocytes 11 % (21-51); MDiff Complete? YES; Magnesium 2.1 mg/dL (1.6-2.6); Monocytes 9 % (0-10); Neutrophil 51 % (42-75); Nucleated RBC 10 % (0); Phosphorus 2.9 mg/dL (2.3-4.7); Polychromasia SLIGHT = 2-3 cells (100X) (0-2/hpf); Potassium 3.8 mmol/L (3.5-5.1); Sodium 141 mmol/L (136-145)
[2022-02-28] MEDS ORDERED: Furosemide 20 MG/2 ML VIAL SLOW IVP SCH (08:30)
[2022-02-28] MEDS ORDERED: Fentanyl CADD 100 ML ONE (10:03)
[2022-02-28] MEDS: Fentanyl CADD 100 ML IV SCH (10:05)
[2022-02-28] MEDS: cloNIDine 0.1 MG TAB PO SCH ×3 (12:25→23:04)
[2022-02-28] MEDS ORDERED: Midazolam HCl 2 mg/2 ml Vial ONE (12:34)
[2022-02-28] MEDS ORDERED: Midazolam HCl 2 mg/2 ml Vial SLOW IVP SCH (13:00)
[2022-03-01] MEDS: Fentanyl CADD 100 ML IV SCH (02:20)
[2022-03-01] MEDS: Piperacillin/Tazobactam 3.375 GM in Sodium Chloride 0.9% 100 ML IVPB SCH ×3 (02:24→17:26)
[2022-03-01] MEDS: Acetaminophen 500 MG TAB PO SCH ×3 (05:34→17:26)
[2022-03-01] MEDS: cloNIDine 0.1 MG TAB PO SCH ×3 (05:35→17:26)
[2022-03-01] MEDS: Oxazepam 10 MG CAP PO SCH ×3 (05:35→22:16)
[2022-03-01] MEDS ORDERED: Lidocaine 1% w/Epinephrine 1:100K 20 ML VIAL IJ SCH (06:00)
[2022-03-01] MEDS ORDERED: Lidocaine 2% 20 ml MDV SC SCH (06:00)
[2022-03-01] MEDS ORDERED: CEFAZOLIN 2 GM VIAL SLOW IVP SCH (06:00)
[2022-03-01] MEDS ORDERED: Vecuronium 10 MG VIAL IVP SCH ×2 (06:00→09:15)
[2022-03-01] MEDS ORDERED: Midazolam HCl 2 mg/2 ml Vial SLOW IVP SCH ×4 (06:00→09:15)
[2022-03-01 06:42] LABS: Band 8 % (5-11); Eosinophils 6 % (0-10); Lymphocytes 5 % (21-51); MDiff Complete? YES; Mean Corpuscular HGB CONC 33.3 g/dL (32.0-36.0); Mean Corpuscular Hemoglobin 31.6 pg (27.0-31.0); Mean Platelet Volume 7.1 fL (7.4-10.4); Monocytes 3 % (0-10); Myelocyte 1 % (0-0); Neutrophil 77 % (42-75); Nucleated RBC 12 % (0); Platelet Count 440 thou/uL (130-400); Platelet Morphology Comment Appears Increased; RBC Distribution Width 14.3 % (11.5-14.5); RBC Morphology Normal; Red Blood Cell (RBC) Count 2.54 mill/uL (4.70-6.10); White Blood Cell (WBC) Count 11.4 thou/uL (4.8-10.8)
[2022-03-01 06:47] LABS: Anion Gap 16 mmol/L (10-20); BUN (Urea Nitrogen) 15 mg/dL (8.9-20.6); Calc. Creatinine Clearance 243 mL/min (70-130); Calcium 8.4 mg/dL (7.8-10.44); Carbon Dioxide 20 mmol/L (22-29); Chloride 107 mmol/L (98-107); Estimated GFR 128; Glucose 121 mg/dL (70-105); Magnesium 2.1 mg/dL (1.6-2.6); Phosphorus 2.7 mg/dL (2.3-4.7); Potassium 3.7 mmol/L (3.5-5.1); Sodium 139 mmol/L (136-145)
[2022-03-01] MEDS ORDERED: Lidocaine 1% w/Epinephrine 1:200K 30 ML VIAL FS SCH (07:30)
[2022-03-01] MEDS ORDERED: Lidocaine 2% PF 5 ML VIAL FS SCH (07:30)
[2022-03-01] MEDS ORDERED: Vecuronium 10 MG VIAL IV SCH (08:15)
[2022-03-01] MEDS ORDERED: Lidocaine 1% (PF) 30 ML VIAL FS SCH (08:15)
[2022-03-01] MEDS ORDERED: Fentanyl 100 MCG/2 ML VIAL SLOW IVP SCH ×2 (08:15→08:30)
[2022-03-01] MEDS: Potassium Chloride 20 MEQ in Premix Bag 1 BAG IVPB SCH ×2 (08:27→10:35)
[2022-03-01 08:29] LABS: Blood Culture - Extra Bottle RECEIVED; Blue RECEIVED; Gold RECEIVED; Green RECEIVED; Lavender RECEIVED; SST 8.5mL RECEIVED
[2022-03-01] MEDS ORDERED: Potassium Phosphate 30 MMOL in Sodium Chloride 0.9% 250 ML 250 ML IVPB SCH (09:00)
[2022-03-01] MEDS ORDERED: Midazolam HCl 2 mg/2 ml Vial ONE ×2 (09:12→09:41)
[2022-03-01] MEDS ORDERED: Vecuronium 10 MG VIAL ONE (09:12)
[2022-03-01] MEDS: Ferrous Sulfate 325 MG TAB PO SCH ×2 (10:32→21:12)
[2022-03-01] MEDS: Folic Acid 1 MG TAB PO SCH (10:32)
[2022-03-01] MEDS: Ascorbic Acid 500 mg Chewable Tablet PO SCH ×2 (10:32→21:12)
[2022-03-01] MEDS: Thiamine 100 MG TAB PO SCH (10:33)
[2022-03-01] MEDS: Multivitamin W/ Minerals 1 TAB PO SCH (10:33)
[2022-03-01] MEDS: Pantoprazole 40 MG VIAL IVP SCH (10:38)
[2022-03-01] MEDS: levETIRAcetam 500 MG/5 ML VIAL SLOW IVP SCH ×2 (10:38→21:13)
[2022-03-01] MEDS ORDERED: Furosemide 20 MG/2 ML VIAL SLOW IVP SCH ×2 (15:45→17:15)
[2022-03-01] MEDS ORDERED: Furosemide 40 MG/4 ML VIAL ONE (15:46)
[2022-03-01] MEDS: Dexmedetomidine 1,000 MCG in Sodium Chloride 0.9% 250 ML 240 ML IVPB SCH (22:00)
[2022-03-02] MEDS: Acetaminophen 500 MG TAB PO SCH ×4 (00:40→18:45)
[2022-03-02] MEDS: cloNIDine 0.1 MG TAB PO SCH ×4 (00:42→18:45)
[2022-03-02] MEDS: Piperacillin/Tazobactam 3.375 GM in Sodium Chloride 0.9% 100 ML IVPB SCH ×3 (02:43→18:45)
[2022-03-02] MEDS: Ondansetron PF 4 MG/2 ML Vial IVP PRN (03:40)
[2022-03-02] MEDS ORDERED: Phentolamine Mesylate 5 MG VIAL IVP SCH (04:00)
[2022-03-02] MEDS: Promethazine HCl 12.5 MG in Sodium Chloride 0.9% 50 ML IVPB PRN (04:49)
[2022-03-02] MEDS: Scopolamine 1.5 mg/72 hour Patch TD SCH (05:47)
[2022-03-02] MEDS: Oxazepam 10 MG CAP PO SCH ×3 (05:48→21:24)
[2022-03-02 06:08] LABS: Band 11 % (5-11); Hemoglobin 8.6 g/dL (14.0-18.0); Lymphocytes 6 % (21-51); MDiff Complete? YES; Mean Corpuscular HGB CONC 32.2 g/dL (32.0-36.0); Mean Corpuscular Hemoglobin 30.9 pg (27.0-31.0); Mean Platelet Volume 7.1 fL (7.4-10.4); Metamyelocyte 2 % (0-0); Monocytes 13 % (0-10); Neutrophil 68 % (42-75); Nucleated RBC 5 % (0); Platelet Count 615 thou/uL (130-400); Platelet Morphology Comment Appears Increased; RBC Distribution Width 14.4 % (11.5-14.5); RBC Morphology Normal; Red Blood Cell (RBC) Count 2.78 mill/uL (4.70-6.10); White Blood Cell (WBC) Count 15.2 thou/uL (4.8-10.8)
[2022-03-02 06:10] LABS: Anion Gap 18 mmol/L (10-20); BUN (Urea Nitrogen) 16 mg/dL (8.9-20.6); Calc. Creatinine Clearance 239 mL/min (70-130); Carbon Dioxide 21 mmol/L (22-29); Chloride 105 mmol/L (98-107); Estimated GFR 127; Glucose 123 mg/dL (70-105); Magnesium 2.2 mg/dL (1.6-2.6); Phosphorus 3.2 mg/dL (2.3-4.7); Potassium 3.6 mmol/L (3.5-5.1); Sodium 140 mmol/L (136-145)
[2022-03-02] MEDS ORDERED: Metoclopramide HCl 10 MG/2 ML VIAL IVP PRN (06:25)
[2022-03-02] MEDS ORDERED: Potassium Chloride 20 MEQ in Premix Bag 1 BAG IVPB SCH (06:45)
[2022-03-02] MEDS: Metoclopramide HCl 10 MG/2 ML VIAL IVP SCH ×3 (06:56→21:24)
[2022-03-02] MEDS ORDERED: Bisacodyl 10 MG SUPP PR SCH (08:15)
[2022-03-02] MEDS ORDERED: Morphine 2 MG/ML VIAL SLOW IVP PRN (10:00)
[2022-03-02] MEDS: Amantadine HCl 100 mg Capsule PO SCH (10:45)
[2022-03-02] MEDS: levETIRAcetam 500 MG/5 ML VIAL SLOW IVP SCH ×2 (10:46→21:24)
[2022-03-02] MEDS: Pantoprazole 40 MG VIAL IVP SCH (10:46)
[2022-03-02] MEDS: Enoxaparin Sodium 40 MG/0.4 ML SYRINGE SC SCH (10:46)
[2022-03-02] MEDS: Folic Acid 1 MG TAB PO SCH (10:47)
[2022-03-02] MEDS: Ferrous Sulfate 325 MG TAB PO SCH ×2 (10:47→21:24)
[2022-03-02] MEDS: Ascorbic Acid 500 mg Chewable Tablet PO SCH ×2 (10:47→21:24)
[2022-03-02] MEDS: Simethicone Chewable 80 MG TAB PER TUBE SCH ×3 (10:48→21:24)
[2022-03-02] MEDS: Thiamine 100 MG TAB PO SCH (10:48)
[2022-03-02] MEDS: Multivitamin W/ Minerals 1 TAB PO SCH (10:48)
[2022-03-02] MEDS ORDERED: cloNIDine 0.1 MG TAB PO SCH (16:30)
[2022-03-02] MEDS: Morphine 2 MG/ML VIAL SLOW IVP PRN ×2 (16:42→21:21)
[2022-03-02] MEDS: Dexmedetomidine 1,000 MCG in Sodium Chloride 0.9% 250 ML 240 ML IVPB SCH (19:22)
[2022-03-03] MEDS: Acetaminophen 500 MG TAB PO SCH ×5 (00:56→23:41)
[2022-03-03] MEDS: cloNIDine 0.1 MG TAB PO SCH ×5 (00:58→23:43)
[2022-03-03] MEDS: Morphine 2 MG/ML VIAL SLOW IVP PRN ×4 (01:10→23:41)
[2022-03-03] MEDS: Piperacillin/Tazobactam 3.375 GM in Sodium Chloride 0.9% 100 ML IVPB SCH ×3 (01:15→17:35)
[2022-03-03 05:06] LABS: Anion Gap 13 mmol/L (10-20); BUN (Urea Nitrogen) 18 mg/dL (8.9-20.6); Calc. Creatinine Clearance 219 mL/min (70-130); Calcium 8.4 mg/dL (7.8-10.44); Carbon Dioxide 24 mmol/L (22-29); Chloride 107 mmol/L (98-107); Estimated GFR 125; Glucose 117 mg/dL (70-105); Magnesium 2.3 mg/dL (1.6-2.6); Potassium 3.7 mmol/L (3.5-5.1); Sodium 140 mmol/L (136-145)
[2022-03-03 05:37] LABS: Band 4 % (5-11); Eosinophils 3 % (0-10); Lymphocytes 7 % (21-51); MDiff Complete? YES; Mean Corpuscular HGB CONC 32.9 g/dL (32.0-36.0); Mean Corpuscular Hemoglobin 31.8 pg (27.0-31.0); Mean Corpuscular Volume 96.9 fL (78.0-98.0); Metamyelocyte 1 % (0-0); Monocytes 6 % (0-10); Myelocyte 1 % (0-0); Neutrophil 78 % (42-75); Nucleated RBC 4 % (0); Platelet Count 764 thou/uL (130-400); Platelet Morphology Comment Appears Increased; RBC Distribution Width 14.1 % (11.5-14.5); RBC Morphology Normal; Red Blood Cell (RBC) Count 2.51 mill/uL (4.70-6.10); Toxic Granulation SLIGHT; White Blood Cell (WBC) Count 15.1 thou/uL (4.8-10.8)
[2022-03-03] MEDS: Metoclopramide HCl 10 MG/2 ML VIAL IVP SCH ×3 (05:41→21:08)
[2022-03-03] MEDS: Oxazepam 10 MG CAP PO SCH ×3 (05:43→21:08)
[2022-03-03] MEDS: Potassium Chloride 20 MEQ in Premix Bag 1 BAG IVPB SCH ×2 (06:23→09:27)
[2022-03-03] MEDS: Thiamine 100 MG TAB PO SCH (09:26)
[2022-03-03] MEDS: Folic Acid 1 MG TAB PO SCH (09:26)
[2022-03-03] MEDS: Ferrous Sulfate 325 MG TAB PO SCH ×2 (09:26→20:23)
[2022-03-03] MEDS: Amantadine HCl 100 mg Capsule PO SCH (09:26)
[2022-03-03] MEDS: Ascorbic Acid 500 mg Chewable Tablet PO SCH ×2 (09:26→20:23)
[2022-03-03] MEDS: Simethicone Chewable 80 MG TAB PER TUBE SCH ×3 (09:26→20:23)
[2022-03-03] MEDS: Multivitamin W/ Minerals 1 TAB PO SCH (09:26)
[2022-03-03] MEDS: Pantoprazole 40 MG VIAL IVP SCH (09:26)
[2022-03-03] MEDS: levETIRAcetam 500 MG/5 ML VIAL SLOW IVP SCH ×2 (09:27→20:23)
[2022-03-03] MEDS: Enoxaparin Sodium 40 MG/0.4 ML SYRINGE SC SCH (09:27)
[2022-03-03] MEDS: Ondansetron PF 4 MG/2 ML Vial IVP PRN ×2 (09:54→16:31)
[2022-03-03] MEDS ORDERED: Furosemide 20 MG/2 ML VIAL SLOW IVP SCH (12:00)
[2022-03-03] MEDS: Dexmedetomidine 1,000 MCG in Sodium Chloride 0.9% 250 ML 240 ML IVPB SCH (14:19)
[2022-03-04 04:18] LABS: Hemoglobin 8.8 g/dL (14.0-18.0); Mean Corpuscular HGB CONC 31.4 g/dL (32.0-36.0); Mean Corpuscular Hemoglobin 31.6 pg (27.0-31.0); Mean Platelet Volume 6.9 fL (7.4-10.4); Platelet Count 924 thou/uL (130-400); RBC Distribution Width 14.4 % (11.5-14.5); White Blood Cell (WBC) Count 16.9 thou/uL (4.8-10.8)
[2022-03-04 04:31] LABS: Anion Gap 15 mmol/L (10-20); BUN (Urea Nitrogen) 18 mg/dL (8.9-20.6); Calc. Creatinine Clearance 194 mL/min (70-130); Calcium 8.9 mg/dL (7.8-10.44); Carbon Dioxide 24 mmol/L (22-29); Chloride 105 mmol/L (98-107); Estimated GFR 122; Glucose 113 mg/dL (70-105); Magnesium 2.2 mg/dL (1.6-2.6); Phosphorus 3.3 mg/dL (2.3-4.7); Potassium 3.6 mmol/L (3.5-5.1); Sodium 140 mmol/L (136-145)
[2022-03-04 04:38] LABS: Band 3 % (5-11); Eosinophils 2 % (0-10); Hypochromia SLIGHT = 6-15 cells (100X) (0-5/hpf); Lymphocytes 20 % (21-51); MDiff Complete? YES; Monocytes 10 % (0-10); Neutrophil 65 % (42-75); Platelet Morphology Comment Appears Increased; Polychromasia SLIGHT = 2-3 cells (100X) (0-2/hpf)
[2022-03-04] MEDS: Metoclopramide HCl 10 MG/2 ML VIAL IVP SCH ×3 (05:06→21:19)
[2022-03-04] MEDS: Morphine 2 MG/ML VIAL SLOW IVP PRN (05:06)
[2022-03-04] MEDS: Acetaminophen 500 MG TAB PO SCH ×3 (05:07→18:48)
[2022-03-04] MEDS: cloNIDine 0.1 MG TAB PO SCH ×2 (05:07→13:46)
[2022-03-04] MEDS: Oxazepam 10 MG CAP PO SCH ×3 (05:08→21:17)
[2022-03-04] MEDS ORDERED: Bisacodyl 10 MG SUPP PR SCH (07:15)
[2022-03-04] MEDS: levETIRAcetam 500 MG/5 ML VIAL SLOW IVP SCH ×2 (09:31→21:20)
[2022-03-04] MEDS: Pantoprazole 40 MG VIAL IVP SCH (09:31)
[2022-03-04] MEDS: Potassium Chloride 20 MEQ in Premix Bag 1 BAG IVPB SCH ×3 (09:32→15:46)
[2022-03-04] MEDS: Amantadine HCl 100 mg Capsule PO SCH (10:07)
[2022-03-04] MEDS: Ascorbic Acid 500 mg Chewable Tablet PO SCH ×2 (10:09→21:18)
[2022-03-04] MEDS: Ferrous Sulfate 325 MG TAB PO SCH ×2 (10:10→21:19)
[2022-03-04] MEDS: Folic Acid 1 MG TAB PO SCH (10:10)
[2022-03-04] MEDS: Multivitamin W/ Minerals 1 TAB PO SCH (10:10)
[2022-03-04] MEDS: Thiamine 100 MG TAB PO SCH (10:11)
[2022-03-04] MEDS: Simethicone Chewable 80 MG TAB PER TUBE SCH ×3 (10:11→21:18)
[2022-03-04] MEDS: Enoxaparin Sodium 40 MG/0.4 ML SYRINGE SC SCH (10:13)
[2022-03-04] MEDS ORDERED: D5W-AA 4.25% with LYTES 1,000 ML IV SCH (12:00)
[2022-03-04] MEDS ORDERED: Furosemide 20 MG/2 ML VIAL SLOW IVP SCH (18:15)
[2022-03-04] MEDS ORDERED: cloNIDine 0.2 MG TAB PO SCH (18:30)
[2022-03-04 18:37] LABS: Lactic Acid 0.8 mmol/L (0.5-2.2)
[2022-03-04] MEDS: Piperacillin/Tazobactam 3.375 GM in Sodium Chloride 0.9% 100 ML IVPB SCH (21:18)
[2022-03-04] MEDS: Dexmedetomidine 1,000 MCG in Sodium Chloride 0.9% 250 ML 240 ML IVPB SCH (21:19)
[2022-03-05] MEDS: Acetaminophen 500 MG TAB PO SCH ×5 (00:43→23:26)
[2022-03-05] MEDS: cloNIDine 0.2 MG TAB PO SCH ×5 (00:44→23:27)
[2022-03-05] MEDS: Ondansetron PF 4 MG/2 ML Vial IVP PRN ×2 (03:24→09:45)
[2022-03-05] MEDS: Scopolamine 1.5 mg/72 hour Patch TD SCH (04:17)
[2022-03-05] MEDS: Morphine 2 MG/ML VIAL SLOW IVP PRN ×2 (04:18→10:36)
[2022-03-05] MEDS: Promethazine HCl 12.5 MG in Sodium Chloride 0.9% 50 ML IVPB PRN (04:23)
[2022-03-05] MEDS: D5W-AA 4.25% with LYTES 1,000 ML IV SCH ×2 (04:24→21:39)
[2022-03-05] MEDS ORDERED: Sodium Chloride 0.9% 500 ML IV SCH (04:45)
[2022-03-05] MEDS: Metoclopramide HCl 10 MG/2 ML VIAL IVP SCH ×3 (05:09→21:02)
[2022-03-05] MEDS: Piperacillin/Tazobactam 3.375 GM in Sodium Chloride 0.9% 100 ML IVPB SCH ×3 (05:09→21:03)
[2022-03-05] MEDS: Oxazepam 10 MG CAP PO SCH ×3 (05:09→21:05)
[2022-03-05 05:56] LABS: #Eosinphils 0.1 thou/uL (0.0-0.7); #Lymphocytes 0.7 thou/uL (1.20-3.40); #Monocytes 0.6 thou/uL (0.11-0.59); #Neutrophils 14.1 thou/uL (1.40-6.50); %Basophils 0.1 % (0.0-1.0); %Eosinophils 0.9 % (0.0-10.0); %Lymphocytes 4.6 % (21.0-51.0); %Neutrophils 90.5 % (42.0-75.0); Hemoglobin 8.5 g/dL (14.0-18.0); Hypochromia SLIGHT = 6-15 cells (100X) (0-5/hpf); MDiff Complete? YES; Macrocytosis SLIGHT = 6-15 cells (100X) (0-5/hpf); Mean Corpuscular HGB CONC 31.5 g/dL (32.0-36.0); Mean Corpuscular Hemoglobin 31.3 pg (27.0-31.0); Mean Corpuscular Volume 99.2 fL (78.0-98.0); Mean Platelet Volume 7.2 fL (7.4-10.4); Platelet Count 1030 thou/uL (130-400); Platelet Morphology Comment Appears Increased; Polychromasia SLIGHT = 2-3 cells (100X) (0-2/hpf); RBC Distribution Width 14.4 % (11.5-14.5); Red Blood Cell (RBC) Count 2.72 mill/uL (4.70-6.10); White Blood Cell (WBC) Count 15.6 thou/uL (4.8-10.8)
[2022-03-05 08:16] LABS: Anion Gap 17 mmol/L (10-20); BUN (Urea Nitrogen) 23 mg/dL (8.9-20.6); Calc. Creatinine Clearance 178 mL/min (70-130); Calcium 8.9 mg/dL (7.8-10.44); Carbon Dioxide 21 mmol/L (22-29); Chloride 105 mmol/L (98-107); Estimated GFR 119; Glucose 126 mg/dL (70-105); Magnesium 2.4 mg/dL (1.6-2.6); Phosphorus 4.4 mg/dL (2.3-4.7); Sodium 139 mmol/L (136-145)
[2022-03-05] MEDS ORDERED: Furosemide 20 MG/2 ML VIAL SLOW IVP SCH ×2 (08:45→19:00)
[2022-03-05] MEDS: Multivitamin W/ Minerals 1 TAB PO SCH (09:21)
[2022-03-05] MEDS: Thiamine 100 MG TAB PO SCH (09:21)
[2022-03-05] MEDS: Amantadine HCl 100 mg Capsule PO SCH (09:21)
[2022-03-05] MEDS: Enoxaparin Sodium 40 MG/0.4 ML SYRINGE SC SCH (09:21)
[2022-03-05] MEDS: Simethicone Chewable 80 MG TAB PER TUBE SCH ×3 (09:21→21:03)
[2022-03-05] MEDS: Folic Acid 1 MG TAB PO SCH (09:21)
[2022-03-05] MEDS: Aspirin Chewable 81 MG TAB PER TUBE SCH (09:21)
[2022-03-05] MEDS: Ascorbic Acid 500 mg Chewable Tablet PO SCH ×2 (09:21→21:02)
[2022-03-05] MEDS: Ferrous Sulfate 325 MG TAB PO SCH ×2 (09:21→21:02)
[2022-03-05] MEDS: levETIRAcetam 500 MG/5 ML VIAL SLOW IVP SCH ×2 (09:22→21:02)
[2022-03-05] MEDS: Pantoprazole 40 MG VIAL IVP SCH (09:22)
[2022-03-05] MEDS ORDERED: Iopamidol 370 76% 100 ML VIAL ONE (15:05)
[2022-03-05] MEDS: Dexmedetomidine 1,000 MCG in Sodium Chloride 0.9% 250 ML 240 ML IVPB SCH (17:46)
[2022-03-06 04:43] LABS: #Eosinphils 0.2 thou/uL (0.0-0.7); #Monocytes 0.8 thou/uL (0.11-0.59); #Neutrophils 8.6 thou/uL (1.40-6.50); %Basophils 0.1 % (0.0-1.0); %Eosinophils 1.7 % (0.0-10.0); %Lymphocytes 9.8 % (21.0-51.0); %Monocytes 7.8 % (0.0-10.0); %Neutrophils 80.6 % (42.0-75.0); Hemoglobin 8.9 g/dL (14.0-18.0); Mean Corpuscular HGB CONC 32.3 g/dL (32.0-36.0); Mean Corpuscular Hemoglobin 31.3 pg (27.0-31.0); Mean Corpuscular Volume 96.7 fL (78.0-98.0); Mean Platelet Volume 6.4 fL (7.4-10.4); Platelet Count 1271 thou/uL (130-400); RBC Distribution Width 14.3 % (11.5-14.5); Red Blood Cell (RBC) Count 2.85 mill/uL (4.70-6.10); White Blood Cell (WBC) Count 10.6 thou/uL (4.8-10.8)
[2022-03-06] MEDS: Acetaminophen 500 MG TAB PO SCH ×4 (05:11→23:42)
[2022-03-06] MEDS: Oxazepam 10 MG CAP PO SCH ×3 (05:11→22:05)
[2022-03-06] MEDS: cloNIDine 0.2 MG TAB PO SCH ×4 (05:11→23:42)
[2022-03-06] MEDS: Piperacillin/Tazobactam 3.375 GM in Sodium Chloride 0.9% 100 ML IVPB SCH (05:12)
[2022-03-06] MEDS: Metoclopramide HCl 10 MG/2 ML VIAL IVP SCH ×3 (05:12→22:05)
[2022-03-06 05:40] LABS: Anion Gap 14 mmol/L (10-20); BUN (Urea Nitrogen) 20 mg/dL (8.9-20.6); Calc. Creatinine Clearance 180 mL/min (70-130); Calcium 8.9 mg/dL (7.8-10.44); Carbon Dioxide 26 mmol/L (22-29); Chloride 102 mmol/L (98-107); Estimated GFR 120; Glucose 137 mg/dL (70-105); Magnesium 2.6 mg/dL (1.6-2.6); Phosphorus 3.4 mg/dL (2.3-4.7); Potassium 3.9 mmol/L (3.5-5.1); Sodium 138 mmol/L (136-145)
[2022-03-06] MEDS: levETIRAcetam 500 MG/5 ML VIAL SLOW IVP SCH ×2 (09:39→20:46)
[2022-03-06] MEDS: Thiamine 100 MG TAB PO SCH (09:39)
[2022-03-06] MEDS: Folic Acid 1 MG TAB PO SCH (09:39)
[2022-03-06] MEDS: Pantoprazole 40 MG VIAL IVP SCH ×2 (09:39→20:46)
[2022-03-06] MEDS: Simethicone Chewable 80 MG TAB PER TUBE SCH ×3 (09:39→20:46)
[2022-03-06] MEDS: Multivitamin W/ Minerals 1 TAB PO SCH (09:40)
[2022-03-06] MEDS: Enoxaparin Sodium 40 MG/0.4 ML SYRINGE SC SCH (09:40)
[2022-03-06] MEDS: Aspirin Chewable 81 MG TAB PER TUBE SCH (09:40)
[2022-03-06] MEDS: Morphine 2 MG/ML VIAL SLOW IVP PRN ×2 (10:07→23:05)
[2022-03-06] MEDS: Amantadine HCl 100 mg Capsule PO SCH (11:43)
[2022-03-06] MEDS: Ascorbic Acid 500 mg Chewable Tablet PO SCH (11:44)
[2022-03-06] MEDS: Ferrous Sulfate 325 MG TAB PO SCH (11:44)
[2022-03-06] MEDS: Cefdinir 125 MG/5 ML Oral Suspension PER TUBE SCH ×2 (11:51→20:46)
[2022-03-06] MEDS: D5W-AA 4.25% with LYTES 1,000 ML IV SCH ×2 (11:52→12:04)
[2022-03-06] MEDS ORDERED: Furosemide 20 MG/2 ML VIAL SLOW IVP SCH (13:15)
[2022-03-07] MEDS: D5W-AA 4.25% with LYTES 1,000 ML IV SCH ×2 (01:26→15:19)
[2022-03-07] MEDS: cloNIDine 0.2 MG TAB PO SCH ×3 (05:53→19:53)
[2022-03-07] MEDS: Oxazepam 10 MG CAP PO SCH ×3 (05:53→20:04)
[2022-03-07] MEDS: Acetaminophen 500 MG TAB PO SCH ×3 (05:53→19:56)
[2022-03-07] MEDS: Metoclopramide HCl 10 MG/2 ML VIAL IVP SCH ×4 (05:53→22:26)
[2022-03-07] MEDS: Multivitamin W/ Minerals 1 TAB PO SCH (08:58)
[2022-03-07] MEDS: Thiamine 100 MG TAB PO SCH (08:59)
[2022-03-07] MEDS: Amantadine HCl 100 mg Capsule PO SCH (08:59)
[2022-03-07] MEDS: Folic Acid 1 MG TAB PO SCH (08:59)
[2022-03-07] MEDS: Simethicone Chewable 80 MG TAB PER TUBE SCH ×3 (08:59→20:02)
[2022-03-07] MEDS: Amlodipine 5 MG TAB PO SCH (09:00)
[2022-03-07] MEDS: Enoxaparin Sodium 40 MG/0.4 ML SYRINGE SC SCH (09:01)
[2022-03-07] MEDS: Pantoprazole 40 MG VIAL IVP SCH ×2 (09:01→20:22)
[2022-03-07] MEDS: levETIRAcetam 500 MG/5 ML VIAL SLOW IVP SCH ×2 (09:01→20:22)
[2022-03-07] MEDS: Aspirin 325 MG TAB PER TUBE SCH (09:07)
[2022-03-07] MEDS: Cefdinir 125 MG/5 ML Oral Suspension PER TUBE SCH ×2 (09:08→21:30)
[2022-03-07] MEDS: Ferrous Sulfate 325 MG TAB PO SCH (12:26)
[2022-03-07] MEDS: Ascorbic Acid 500 mg Chewable Tablet PO SCH (12:26)
[2022-03-07] MEDS ORDERED: Prevnar 13-Val Conj/PF 0.5 ML SYRINGE IM ONE (14:00)
[2022-03-08] MEDS: Acetaminophen 500 MG TAB PO SCH ×4 (00:23→17:58)
[2022-03-08] MEDS: cloNIDine 0.2 MG TAB PO SCH ×4 (00:26→22:00)
[2022-03-08 04:20] LABS: Hemoglobin 10.7 g/dL (14.0-18.0); Mean Corpuscular HGB CONC 32.4 g/dL (32.0-36.0); Mean Corpuscular Hemoglobin 30.6 pg (27.0-31.0); Mean Corpuscular Volume 94.6 fL (78.0-98.0); Mean Platelet Volume 6.2 fL (7.4-10.4); Platelet Count 1728 thou/uL (130-400); RBC Distribution Width 14.1 % (11.5-14.5); Red Blood Cell (RBC) Count 3.49 mill/uL (4.70-6.10); White Blood Cell (WBC) Count 12.4 thou/uL (4.8-10.8)
[2022-03-08 04:26] LABS: Anion Gap 16 mmol/L (10-20); BUN (Urea Nitrogen) 18 mg/dL (8.9-20.6); Calc. Creatinine Clearance 206 mL/min (70-130); Calcium 9.6 mg/dL (7.8-10.44); Carbon Dioxide 23 mmol/L (22-29); Chloride 101 mmol/L (98-107); Estimated GFR 125; Glucose 116 mg/dL (70-105); Magnesium 2.4 mg/dL (1.6-2.6); Phosphorus 2.8 mg/dL (2.3-4.7); Potassium 4.2 mmol/L (3.5-5.1); Sodium 136 mmol/L (136-145)
[2022-03-08 04:36] LABS: Band 8 % (5-11); Hypochromia SLIGHT = 6-15 cells (100X) (0-5/hpf); Lymphocytes 12 % (21-51); MDiff Complete? YES; Monocytes 5 % (0-10); Neutrophil 75 % (42-75); Platelet Morphology Comment Appears Increased
[2022-03-08] MEDS: Scopolamine 1.5 mg/72 hour Patch TD SCH (05:00)
[2022-03-08] MEDS: Metoclopramide HCl 10 MG/2 ML VIAL IVP SCH ×3 (05:30→22:03)
[2022-03-08] MEDS: D5W-AA 4.25% with LYTES 1,000 ML IV SCH (08:51)
[2022-03-08] MEDS: Enoxaparin Sodium 40 MG/0.4 ML SYRINGE SC SCH (08:52)
[2022-03-08] MEDS: Amantadine HCl 100 mg Capsule PO SCH (08:52)
[2022-03-08] MEDS: Multivitamin W/ Minerals 1 TAB PO SCH (08:53)
[2022-03-08] MEDS: Pantoprazole 40 MG VIAL IVP SCH ×2 (08:53→22:01)
[2022-03-08] MEDS: Simethicone Chewable 80 MG TAB PER TUBE SCH ×3 (08:53→22:00)
[2022-03-08] MEDS: Folic Acid 1 MG TAB PO SCH (08:53)
[2022-03-08] MEDS: levETIRAcetam 500 MG/5 ML VIAL SLOW IVP SCH (08:53)
[2022-03-08] MEDS: Saccharomyces boulardii 250 MG CAP PO SCH (08:53)
[2022-03-08] MEDS: Aspirin 325 MG TAB PER TUBE SCH (08:54)
[2022-03-08] MEDS: Amlodipine 5 MG TAB PO SCH (08:54)
[2022-03-08] MEDS: Thiamine 100 MG TAB PO SCH (08:54)
[2022-03-08] MEDS ORDERED: Haemoph B Poly Conj-Tet Tox/PF 10 MCG/0.5 ML VIAL IM ONE (09:00)
[2022-03-08] MEDS: Cefdinir 125 MG/5 ML Oral Suspension PER TUBE SCH ×2 (09:45→22:00)
[2022-03-08] MEDS: Ascorbic Acid 500 mg Chewable Tablet PO SCH (14:46)
[2022-03-08] MEDS: Ferrous Sulfate 325 MG TAB PO SCH (14:46)
[2022-03-08] MEDS ORDERED: Furosemide 20 MG/2 ML VIAL SLOW IVP SCH (17:30)
[2022-03-09] MEDS: Acetaminophen 500 MG TAB PO SCH ×4 (00:22→17:57)
[2022-03-09] MEDS: cloNIDine 0.2 MG TAB PO SCH ×3 (06:14→21:36)
[2022-03-09] MEDS: Metoclopramide HCl 10 MG/2 ML VIAL IVP SCH ×3 (06:14→21:36)
[2022-03-09] MEDS: Saccharomyces boulardii 250 MG CAP PO SCH (10:09)
[2022-03-09] MEDS: Aspirin 325 MG TAB PER TUBE SCH (10:09)
[2022-03-09] MEDS: Folic Acid 1 MG TAB PO SCH (10:09)
[2022-03-09] MEDS: Multivitamin W/ Minerals 1 TAB PO SCH (10:10)
[2022-03-09] MEDS: Amlodipine 5 MG TAB PO SCH (10:10)
[2022-03-09] MEDS: Thiamine 100 MG TAB PO SCH (10:10)
[2022-03-09] MEDS: Amantadine HCl 100 mg Capsule PO SCH (10:10)
[2022-03-09] MEDS: Enoxaparin Sodium 40 MG/0.4 ML SYRINGE SC SCH (10:12)
[2022-03-09] MEDS: Simethicone Chewable 80 MG TAB PER TUBE SCH ×3 (10:12→21:36)
[2022-03-09] MEDS: Pantoprazole 40 MG VIAL IVP SCH ×2 (10:20→21:35)
[2022-03-09] MEDS: Cefdinir 125 MG/5 ML Oral Suspension PER TUBE SCH ×2 (10:20→21:36)
[2022-03-09] MEDS: Ferrous Sulfate 325 MG TAB PO SCH (13:24)
[2022-03-09] MEDS: Ascorbic Acid 500 mg Chewable Tablet PO SCH (13:25)
[2022-03-09] MEDS ORDERED: Mening Vac A,C,Y,W-135 Dip/PF (MENVEO) IM ONE (15:45)
[2022-03-09] MEDS: cloNIDine 0.1 MG TAB PO SCH (20:12)
[2022-03-09] MEDS: Morphine 2 MG/ML VIAL SLOW IVP PRN (21:21)
[2022-03-10] MEDS: Acetaminophen 500 MG TAB PO SCH ×2 (00:32→07:16)
[2022-03-10] MEDS: Morphine 2 MG/ML VIAL SLOW IVP PRN ×2 (00:32→04:05)
[2022-03-10 04:17] LABS: Hemoglobin 10.3 g/dL (14.0-18.0); Mean Corpuscular HGB CONC 32.1 g/dL (32.0-36.0); Mean Corpuscular Hemoglobin 31.3 pg (27.0-31.0); Mean Corpuscular Volume 97.4 fL (78.0-98.0); Mean Platelet Volume 7.1 fL (7.4-10.4); Platelet Count 1420 thou/uL (130-400); RBC Distribution Width 14.3 % (11.5-14.5); Red Blood Cell (RBC) Count 3.28 mill/uL (4.70-6.10); White Blood Cell (WBC) Count 10.9 thou/uL (4.8-10.8)
[2022-03-10 04:45] LABS: #Basophils 0.1 thou/uL (0.0-0.2); #Eosinphils 0.4 thou/uL (0.0-0.7); #Lymphocytes 1.7 thou/uL (1.20-3.40); #Monocytes 1.1 thou/uL (0.11-0.59); #Neutrophils 7.6 thou/uL (1.40-6.50); %Lymphocytes 15.4 % (21.0-51.0); %Monocytes 10.1 % (0.0-10.0); %Neutrophils 69.6 % (42.0-75.0); Anion Gap 17 mmol/L (10-20); BUN (Urea Nitrogen) 19 mg/dL (8.9-20.6); Calc. Creatinine Clearance 192 mL/min (70-130); Calcium 9.2 mg/dL (7.8-10.44); Carbon Dioxide 20 mmol/L (22-29); Chloride 103 mmol/L (98-107); Estimated GFR 126; Glucose 130 mg/dL (70-105); Magnesium 2.3 mg/dL (1.6-2.6); Phosphorus 3.2 mg/dL (2.3-4.7); Platelet Morphology Comment Appears Increased; Potassium 4.8 mmol/L (3.5-5.1); Sodium 135 mmol/L (136-145)
[2022-03-10] MEDS: cloNIDine 0.2 MG TAB PO SCH ×3 (07:16→20:47)
[2022-03-10] MEDS: Metoclopramide HCl 10 MG/2 ML VIAL IVP SCH ×3 (07:16→20:47)
[2022-03-10] MEDS ORDERED: PHOS-NAK 1 PKT PACK PO SCH (09:45)
[2022-03-10] MEDS: Enoxaparin Sodium 40 MG/0.4 ML SYRINGE SC SCH (10:21)
[2022-03-10] MEDS: Cefdinir 125 MG/5 ML Oral Suspension PER TUBE SCH ×2 (10:22→20:47)
[2022-03-10] MEDS: Amantadine HCl 100 mg Capsule PO SCH (10:22)
[2022-03-10] MEDS: Pantoprazole 40 MG VIAL IVP SCH ×2 (10:23→20:47)
[2022-03-10] MEDS: Amlodipine 5 MG TAB PO SCH (10:23)
[2022-03-10] MEDS: Simethicone Chewable 80 MG TAB PER TUBE SCH ×3 (10:23→20:47)
[2022-03-10] MEDS: Saccharomyces boulardii 250 MG CAP PO SCH (10:23)
[2022-03-10] MEDS: Folic Acid 1 MG TAB PO SCH (10:23)
[2022-03-10] MEDS: Aspirin 325 MG TAB PER TUBE SCH (10:24)
[2022-03-10] MEDS: Thiamine 100 MG TAB PO SCH (10:24)
[2022-03-10] MEDS: Multivitamin W/ Minerals 1 TAB PO SCH (10:24)
[2022-03-10] MEDS: Ferrous Sulfate 325 MG TAB PO SCH (10:26)
[2022-03-10] MEDS: Ascorbic Acid 500 mg Chewable Tablet PO SCH (10:27)
[2022-03-10] MEDS: Acetaminophen 325 MG TAB PO SCH ×2 (10:27→16:23)
[2022-03-10] MEDS: Acetaminophen/Codeine 30-300mg Tablet PO PRN (16:22)
[2022-03-11] MEDS: Scopolamine 1.5 mg/72 hour Patch TD SCH (04:06)
[2022-03-11] MEDS: Acetaminophen 325 MG TAB PO SCH ×4 (04:06→17:19)
[2022-03-11 04:46] LABS: Anion Gap 16 mmol/L (10-20); BUN (Urea Nitrogen) 19 mg/dL (8.9-20.6); Calc. Creatinine Clearance 192 mL/min (70-130); Calcium 9.5 mg/dL (7.8-10.44); Carbon Dioxide 22 mmol/L (22-29); Chloride 103 mmol/L (98-107); Estimated GFR 126; Glucose 128 mg/dL (70-105); Magnesium 2.4 mg/dL (1.6-2.6); Phosphorus 2.8 mg/dL (2.3-4.7); Potassium 4.3 mmol/L (3.5-5.1); Sodium 137 mmol/L (136-145)
[2022-03-11 05:41] LABS: Platelet Count 1716 thou/uL (130-400)
[2022-03-11 05:52] LABS: #Basophils 0.1 thou/uL (0.0-0.2); #Eosinphils 0.4 thou/uL (0.0-0.7); #Lymphocytes 1.4 thou/uL (1.20-3.40); #Monocytes 0.9 thou/uL (0.11-0.59); #Neutrophils 9.6 thou/uL (1.40-6.50); %Basophils 0.6 % (0.0-1.0); %Eosinophils 3.5 % (0.0-10.0); %Lymphocytes 11.2 % (21.0-51.0); %Monocytes 7.2 % (0.0-10.0); %Neutrophils 77.4 % (42.0-75.0); Hemoglobin 10.5 g/dL (14.0-18.0); Mean Corpuscular HGB CONC 31.6 g/dL (32.0-36.0); Mean Corpuscular Hemoglobin 30.7 pg (27.0-31.0); Mean Corpuscular Volume 97.2 fL (78.0-98.0); Mean Platelet Volume 6.3 fL (7.4-10.4); Platelet Morphology Comment Appears Increased; RBC Distribution Width 14.3 % (11.5-14.5); Red Blood Cell (RBC) Count 3.43 mill/uL (4.70-6.10); White Blood Cell (WBC) Count 12.4 thou/uL (4.8-10.8)
[2022-03-11] MEDS: cloNIDine 0.2 MG TAB PO SCH ×3 (07:23→21:04)
[2022-03-11] MEDS: Metoclopramide HCl 10 MG/2 ML VIAL IVP SCH ×3 (07:24→21:04)
[2022-03-11] MEDS: Multivitamin W/ Minerals 1 TAB PO SCH (08:55)
[2022-03-11] MEDS: Cefdinir 125 MG/5 ML Oral Suspension PER TUBE SCH ×2 (08:55→20:57)
[2022-03-11] MEDS: Thiamine 100 MG TAB PO SCH (08:55)
[2022-03-11] MEDS: Pantoprazole 40 MG VIAL IVP SCH ×2 (08:55→20:57)
[2022-03-11] MEDS: Amlodipine 5 MG TAB PO SCH (08:55)
[2022-03-11] MEDS: Aspirin 325 MG TAB PER TUBE SCH (08:56)
[2022-03-11] MEDS: Enoxaparin Sodium 40 MG/0.4 ML SYRINGE SC SCH (08:56)
[2022-03-11] MEDS: Folic Acid 1 MG TAB PO SCH (08:56)
[2022-03-11] MEDS: Amantadine HCl 100 mg Capsule PO SCH (08:56)
[2022-03-11] MEDS: Saccharomyces boulardii 250 MG CAP PO SCH (09:10)
[2022-03-11] MEDS: Simethicone Chewable 80 MG TAB PER TUBE SCH ×3 (09:11→20:57)
[2022-03-11] MEDS ORDERED: PHOS-NAK 1 PKT PACK PO SCH (09:15)
[2022-03-11] MEDS: Ascorbic Acid 500 mg Chewable Tablet PO SCH (12:30)
[2022-03-11] MEDS: Ferrous Sulfate 325 MG TAB PO SCH (12:30)
[2022-03-11] MEDS: Acetaminophen/Codeine 30-300mg Tablet PO PRN (21:09)
[2022-03-12] MEDS: Acetaminophen 325 MG TAB PO SCH ×4 (00:58→18:20)
[2022-03-12] MEDS: Acetaminophen/Codeine 30-300mg Tablet PO PRN ×2 (05:03→14:05)
[2022-03-12] MEDS: cloNIDine 0.2 MG TAB PO SCH (05:04)
[2022-03-12] MEDS: Metoclopramide HCl 10 MG/2 ML VIAL IVP SCH ×3 (05:04→21:17)
[2022-03-12] MEDS: Amlodipine 5 MG TAB PO SCH (08:37)
[2022-03-12] MEDS: Folic Acid 1 MG TAB PO SCH (08:37)
[2022-03-12] MEDS: Saccharomyces boulardii 250 MG CAP PO SCH (08:37)
[2022-03-12] MEDS: Simethicone Chewable 80 MG TAB PER TUBE SCH ×3 (08:37→21:16)
[2022-03-12] MEDS: Enoxaparin Sodium 40 MG/0.4 ML SYRINGE SC SCH (08:37)
[2022-03-12] MEDS: Multivitamin W/ Minerals 1 TAB PO SCH (08:37)
[2022-03-12] MEDS: Thiamine 100 MG TAB PO SCH (08:37)
[2022-03-12] MEDS: Pantoprazole 40 MG VIAL IVP SCH ×2 (08:37→21:17)
[2022-03-12] MEDS: Aspirin 325 MG TAB PER TUBE SCH (08:37)
[2022-03-12] MEDS: Amantadine HCl 100 mg Capsule PO SCH (08:38)
[2022-03-12] MEDS: Cefdinir 125 MG/5 ML Oral Suspension PER TUBE SCH (08:38)
[2022-03-12] MEDS: Ascorbic Acid 500 mg Chewable Tablet PO SCH (14:05)
[2022-03-12] MEDS: Ferrous Sulfate 325 MG TAB PO SCH (14:05)
[2022-03-12] MEDS: Cefdinir 300 MG CAP PO SCH (21:16)
[2022-03-12] MEDS: cloNIDine 0.1 MG TAB PO SCH (21:16)
[2022-03-13] MEDS: Acetaminophen 325 MG TAB PO SCH ×4 (00:26→17:46)
[2022-03-13] MEDS: Metoclopramide HCl 10 MG/2 ML VIAL IVP SCH ×2 (05:56→14:21)
[2022-03-13 06:00] LABS: #Eosinphils 0.4 thou/uL (0.0-0.7); #Lymphocytes 1.5 thou/uL (1.20-3.40); #Monocytes 0.7 thou/uL (0.11-0.59); %Basophils 0.5 % (0.0-1.0); %Eosinophils 4.4 % (0.0-10.0); %Lymphocytes 16.9 % (21.0-51.0); %Monocytes 8.5 % (0.0-10.0); %Neutrophils 69.7 % (42.0-75.0); Hemoglobin 10.3 g/dL (14.0-18.0); Mean Corpuscular HGB CONC 32.4 g/dL (32.0-36.0); Mean Corpuscular Hemoglobin 30.7 pg (27.0-31.0); Mean Corpuscular Volume 94.7 fL (78.0-98.0); Platelet Count 1558 thou/uL (130-400); RBC Distribution Width 14.5 % (11.5-14.5); Red Blood Cell (RBC) Count 3.35 mill/uL (4.70-6.10); White Blood Cell (WBC) Count 8.6 thou/uL (4.8-10.8)
[2022-03-13 06:05] VITALS: BMI 25.3
[2022-03-13] MEDS: Enoxaparin Sodium 40 MG/0.4 ML SYRINGE SC SCH (09:15)
[2022-03-13] MEDS: Saccharomyces boulardii 250 MG CAP PO SCH (09:16)
[2022-03-13] MEDS: Amantadine HCl 100 mg Capsule PO SCH (09:16)
[2022-03-13] MEDS: Cefdinir 300 MG CAP PO SCH ×2 (09:16→20:34)
[2022-03-13] MEDS: Folic Acid 1 MG TAB PO SCH (09:16)
[2022-03-13] MEDS: cloNIDine 0.1 MG TAB PO SCH ×2 (09:16→20:34)
[2022-03-13] MEDS: Aspirin 325 MG TAB PER TUBE SCH (09:16)
[2022-03-13] MEDS: Simethicone Chewable 80 MG TAB PER TUBE SCH ×3 (09:16→20:34)
[2022-03-13] MEDS: Thiamine 100 MG TAB PO SCH (09:17)
[2022-03-13] MEDS: Pantoprazole 40 MG VIAL IVP SCH (09:17)
[2022-03-13] MEDS: Multivitamin W/ Minerals 1 TAB PO SCH (09:17)
[2022-03-13] MEDS: Amlodipine 5 MG TAB PO SCH (09:17)
[2022-03-13] MEDS ORDERED: Mening Vac A,C,Y,W-135 Dip/PF (MENVEO) IM ONE (10:45)
[2022-03-13] MEDS: Ascorbic Acid 500 mg Chewable Tablet PO SCH (12:22)
[2022-03-13] MEDS: Ferrous Sulfate 325 MG TAB PO SCH (12:22)
[2022-03-13] MEDS: Acetaminophen/Codeine 30-300mg Tablet PO PRN (17:45)
[2022-03-14] MEDS: Acetaminophen 325 MG TAB PO SCH ×2 (00:08→13:29)
[2022-03-14] MEDS ORDERED: Aspirin 325 MG TAB PO SCH (08:00)
[2022-03-14] MEDS ORDERED: Amlodipine 10 MG TAB PO SCH (09:00)
[2022-03-14] MEDS: Acetaminophen/Codeine 30-300mg Tablet PO PRN (09:30)
[2022-03-14] MEDS: Amantadine HCl 100 mg Capsule PO SCH (09:32)
[2022-03-14] MEDS: Folic Acid 1 MG TAB PO SCH (09:33)
[2022-03-14] MEDS: Simethicone Chewable 80 MG TAB PER TUBE SCH (09:33)
[2022-03-14] MEDS: cloNIDine 0.1 MG TAB PO SCH (09:33)
[2022-03-14] MEDS: Multivitamin W/ Minerals 1 TAB PO SCH (09:34)
[2022-03-14] MEDS: Saccharomyces boulardii 250 MG CAP PO SCH (09:35)
[2022-03-14] MEDS: Thiamine 100 MG TAB PO SCH (09:35)
[2022-03-14] MEDS: Enoxaparin Sodium 40 MG/0.4 ML SYRINGE SC SCH (09:35)
[2022-03-14] MEDS ORDERED: Ibuprofen 200 MG TAB PO SCH (10:00)
[2022-03-14 11:53] VITALS: BP 114/72; TEMP 97.3
[2022-03-14] MEDS: Ferrous Sulfate 325 MG TAB PO SCH (13:29)
[2022-03-14] MEDS ORDERED: Gabapentin 100 MG CAP PO SCH (15:00)
[2022-03-14] MEDS ORDERED: Gabapentin 300 MG CAP PO SCH (15:00)
== END 2022-03-14 15:07 | disposition home or self-care (01) | DRG 3 ==
LOC: ERS 10:34 → EDBD 10:34 → SDC 11:52 → CCU 13:54 → UNDOADMIN 13:54 → IMCU/EMU 03-08 11:03 → SURG A 03-12 16:31
PROVIDERS: ADMIT Surgery; ATTEND Surgery
PROC: 5A1955Z Respiratory Ventilation, Greater than 96 Consecutive Hours (ICD-10-PCS; principal; 2022-02-23)
PROC: 0W9G0ZZ Drainage of Peritoneal Cavity, Open Approach (ICD-10-PCS; 2022-02-23)
PROC: 0DBB0ZZ Excision of Ileum, Open Approach (ICD-10-PCS; 2022-02-23)
PROC: 0D9670Z Drainage of Stomach with Drainage Device, Via Natural or Artificial Opening (ICD-10-PCS; 2022-02-23)
PROC: 3E0G76Z Introduction of Nutritional Substance into Upper GI, Via Natural or Artificial Opening (ICD-10-PCS; 2022-02-23)
PROC: 30233L1 Transfusion of Nonautologous Fresh Plasma into Peripheral Vein, Percutaneous Approach (ICD-10-PCS; 2022-02-23)
PROC: 30233N1 Transfusion of Nonautologous Red Blood Cells into Peripheral Vein, Percutaneous Approach (ICD-10-PCS; 2022-02-23)
PROC: 30233R1 Transfusion of Nonautologous Platelets into Peripheral Vein, Percutaneous Approach (ICD-10-PCS; 2022-02-23)
PROC: 30233M1 Transfusion of Nonautologous Plasma Cryoprecipitate into Peripheral Vein, Percutaneous Approach (ICD-10-PCS; 2022-02-23)
PROC: 3E033XZ Introduction of Vasopressor into Peripheral Vein, Percutaneous Approach (ICD-10-PCS; 2022-02-23)
PROC: 06HY33Z Insertion of Infusion Device into Lower Vein, Percutaneous Approach (ICD-10-PCS; 2022-02-23)
PROC: 0W9B30Z Drainage of Left Pleural Cavity with Drainage Device, Percutaneous Approach (ICD-10-PCS; 2022-02-23)
PROC: 00H032Z Insertion of Monitoring Device into Brain, Percutaneous Approach (ICD-10-PCS; 2022-02-23)
PROC: 0DQV0ZZ Repair Mesentery, Open Approach (ICD-10-PCS; 2022-02-23)
PROC: 4A103BD Monitoring of Intracranial Pressure, Percutaneous Approach (ICD-10-PCS; 2022-02-23)
PROC: 07BP0ZZ Excision of Spleen, Open Approach (ICD-10-PCS; 2022-02-24)
PROC: 02H633Z Insertion of Infusion Device into Right Atrium, Percutaneous Approach (ICD-10-PCS; 2022-02-26)
PROC: 0B113F4 Bypass Trachea to Cutaneous with Tracheostomy Device, Percutaneous Approach (ICD-10-PCS; 2022-03-01)
DX: S06.349A Traumatic hemorrhage of right cerebrum with loss of consciousness of unspecified duration, initial encounter (principal); S27.2XXA Traumatic hemopneumothorax, initial encounter; J96.00 Acute respiratory failure, unspecified whether with hypoxia or hypercapnia; J69.0 Pneumonitis due to inhalation of food and vomit; I46.8 Cardiac arrest due to other underlying condition; T79.4XXA Traumatic shock, initial encounter; J15.6 Pneumonia due to other Gram-negative bacteria; S22.43XA Multiple fractures of ribs, bilateral, initial encounter for closed fracture; S36.039A Unspecified laceration of spleen, initial encounter; S27.322A Contusion of lung, bilateral, initial encounter; E87.2 Acidosis; N17.9 Acute kidney failure, unspecified; S36.893A Laceration of other intra-abdominal organs, initial encounter; D62 Acute posthemorrhagic anemia; S26.11XA Contusion of heart without hemopericardium, initial encounter; T79.7XXA Traumatic subcutaneous emphysema, initial encounter; K56.7 Ileus, unspecified; R40.2312 Coma scale, best motor response, none, at arrival to emergency department; R40.2112 Coma scale, eyes open, never, at arrival to emergency department; S02.85XA Fracture of orbit, unspecified, initial encounter for closed fracture; S02.40FA Zygomatic fracture, left side, initial encounter for closed fracture; W17.89XA Other fall from one level to another, initial encounter; Z20.822 Contact with and (suspected) exposure to COVID-19; K76.0 Fatty (change of) liver, not elsewhere classified; T79.6XXA Traumatic ischemia of muscle, initial encounter; S06.6X9A Traumatic subarachnoid hemorrhage with loss of consciousness of unspecified duration, initial encounter; F10.10 Alcohol abuse, uncomplicated; E83.39 Other disorders of phosphorus metabolism; E87.6 Hypokalemia; K59.00 Constipation, unspecified; D75.838 Other thrombocytosis
CPT/HCPCS: 31624; 36415; 36416; 36430; 36556; 36600; 51702; 70450; 70486; 70498; 71045; 71260; 72125; 72170; 74018; 74177; 76377; 80048; 80053; 80306; 80307; 81003; 81015; 82550; 82553; 82805; 83605; 83690; 83735; 83930; 84100; 84146; 84484; 85025; 85384; 85610; 85730; 86850; 86900; 86901; 87040; 87070; 87077; 87086; 87186; 87205; 88305; 88307; 90471; 90648; 90670; 90715; 90732; 90734; 93005; 93010; 93306; 93970; 94002; 94003; 94640; 95816; 95819; 95957; 96361; 96374; 96375; 97139; C1751; C1776; C9113; G0009; G0390; J1644; J1650; J1815; J1940; J1953; J2060; J2250; J2270; J2370; J2405; J2543; J2550; J2765; J3010; J3475; J3480; J3490; J7030; J7050; J7120; J7620; P9012; P9016; P9035; P9045; P9048; P9059; Q9967; Q9968; S0028; U0003; U0005

== ENCOUNTER 2022-03-27 12:14 | Outpatient (CLI) | payer OTHER, MEDICAID | END 2022-03-27 12:15 | disposition home or self-care (01) | LOC: BICCT 12:14 | PROVIDERS: ATTEND Physician Assistant | DX: I61.5 Nontraumatic intracerebral hemorrhage, intraventricular (principal); S02.40FA Zygomatic fracture, left side, initial encounter for closed fracture | CPT/HCPCS: 70450 ==

== ENCOUNTER 2022-04-12 01:18 | Emergency (ER) | payer MEDICAID, SELFPAY ==
[2022-04-12] MEDS ORDERED: diphenhydrAMINE 50 MG/ML VIAL ONE (01:45)
[2022-04-12] MEDS ORDERED: Metoclopramide HCl 10 MG/2 ML VIAL ONE (01:45)
[2022-04-12 05:04] LABS: INR-International Normal Ratio 0.9; Prothrombin Time 12.7 sec (12.0-14.7)
[2022-04-12 05:05] LABS: PTT 27.8 sec (22.9-36.1)
== END 2022-04-12 09:59 | disposition home or self-care (01) ==
LOC: ERS 01:18
DX: S06.5X0A Traumatic subdural hemorrhage without loss of consciousness, initial encounter (principal)
CPT/HCPCS: 36415; 70450; 85610; 85730; 96374; 96375; J1200; J2765

== ENCOUNTER 2022-04-26 10:59 | Outpatient (CLI) | payer OTHER | END 2022-04-26 11:00 | disposition home or self-care (01) | LOC: BICCT 10:59 | PROVIDERS: ATTEND Surgery | DX: S06.5X9D Traumatic subdural hemorrhage with loss of consciousness of unspecified duration, subsequent encounter (principal) | CPT/HCPCS: 70450 ==

== ENCOUNTER 2022-10-23 10:55 | Outpatient (CLI) | payer OTHER | END 2022-10-23 10:56 | disposition home or self-care (01) | LOC: BICCT 10:55 | PROVIDERS: ATTEND Psychiatry & Neurology Neurology | DX: R41.2 Retrograde amnesia (principal) | CPT/HCPCS: 70450 ==

== ENCOUNTER 2023-03-27 20:30 | Emergency (ER) | payer SELFPAY ==
[~2023-03-27 20:30] MED LIST: Iopamidol-370 76% 500 ML MDV (1 ML CHARGE) ONE
[2023-03-27 21:30] LABS: #Basophils 0.1 thou/uL (0.0-0.2); #Eosinphils 0.5 thou/uL (0.0-0.7); #Monocytes 0.8 thou/uL (0.11-0.59); #Neutrophils 2.9 thou/uL (1.40-6.50); %Eosinophils 6.9 % (0.0-10.0); %Lymphocytes 40.9 % (21.0-51.0); %Monocytes 10.4 % (0.0-10.0); %Neutrophils 40.5 % (42.0-75.0); Hematocrit 39.7 % (42.0-52.0); Hemoglobin 13.5 g/dL (14.0-18.0); Mean Corpuscular Volume 91.1 fl (78.0-98.0); Mean Platelet Volume 9.3 fL (7.4-10.4); Platelet Count 359 10x3/uL (130-400); RBC Distribution Width 14.6 % (11.5-14.5); Red Blood Cell (RBC) Count 4.36 mill/uL (4.70-6.10); White Blood Cell (WBC) Count 7.2 10x3/uL (4.8-10.8)
[2023-03-27] MEDS ORDERED: Acetaminophen 500 MG TAB ONE (21:52)
[2023-03-27 21:58] LABS: Troponin I Less than 0.010 ng/mL (< 0.028)
[2023-03-27 22:35] LABS: Albumin 4.2 g/dL (3.5-5.0)
[2023-03-27 22:36] LABS: Calcium 8.6 mg/dL (7.8-10.44); Chloride 107 mmol/L (98-107); Potassium 3.3 mmol/L (3.5-5.1); Sodium 140 mmol/L (136-145)
[2023-03-27 22:37] LABS: Globulin 2.7 g/dL (2.4-3.5); Glucose 101 mg/dL (70-105); Protein, Total 6.9 g/dL (6.0-8.3)
[2023-03-27 22:38] LABS: Anion Gap 15 mmol/L (10-20); Carbon Dioxide 21 mmol/L (22-29)
[2023-03-27 22:39] LABS: Bilirubin, Total 0.3 mg/dL (0.2-1.2)
[2023-03-27 22:40] LABS: Alkaline Phosphatase 80 U/L (40-110)
[2023-03-27 22:41] LABS: BUN (Urea Nitrogen) 12 mg/dL (8.9-20.6); Calc. Creatinine Clearance 0 mL/min (70-130); Estimated GFR 118
[2023-03-27 22:42] LABS: AST (SGOT) 16 U/L (5-34)
[2023-03-27] MEDS ORDERED: Potassium Chloride 20 MEQ TAB ONE (22:52)
[2023-03-27 23:01] LABS: ALT (SGPT) 15 U/L (8-55); CK (CPK) 113 U/L (30-200); Lipase 7 U/L (8-78)
== END 2023-03-27 23:38 | disposition home or self-care (01) ==
LOC: ERS 20:30
DX: E87.6 Hypokalemia (principal)
CPT/HCPCS: 70496; 70498; 71045; 80053; 82550; 83690; 83735; 83880; 84484; 85025; Q9967